=== PATIENT | female | born 1990 | race Caucasian/White ===

== ENCOUNTER 2019-05-11 08:16 | Emergency (ER) | payer SELFPAY ==
[2019-05-11 08:22] VITALS: BP 116/97; PULSE 84; RESP 16; TEMP 36.6; O2SAT 98; BMI 42.5
[2019-05-11 08:27] VITALS: BP 181/73; PULSE 81; RESP 17; O2SAT 98
--- NOTE | 2019-05-11 08:28 | ED_ITS ---
HPI - Dental/Oral General: Chief complaint: Dental/Oral Stated complaint: DENTAL PAIN Time Seen by Provider: 05/11/19 08:21 History of Present Illness: HPI Narrative: Patient is a 29-year-old female who comes into the ED with dental pain. About 2 weeks ago patient started getting dental pain and swelling around the tooth in her lower right mandible that has a cavity. She went to urgent care and was put on amoxicillin to treat the infection. Patient took full course of antibiotic and took her last dose of amoxicillin about 3 to 4 days ago. Patient said that her pain and swelling had gone down on the amoxicillin but came back about 2 days after finishing up amoxicillin. Patient says the pain and swelling is worse than it was before. She is currently contacting dental offices to set up an appointment. Associated symptoms: Denies fever(s) or painful swallowing Review of Systems Const: Denies: fever, chills or fatigue Eyes: Denies: change in vision or eye discomfort ENMT: Reports: dental pain; Denies: throat pain, painful swallowing, nasal discharge or nasal congestion Card: Denies: chest pain, palpitations, edema, swelling of feet/ankles, shortness of breath on exertion or shortness of breath when lying down Resp: Denies: shortness of breath, productive cough or non-productive cough GI: Denies: abdominal pain, nausea, vomiting, diarrhea, constipation or blood in stool : Denies: flank pain, painful urination or blood in urine Musc: Denies: neck pain, back pain or extremity swelling Skin/Breast: Denies: rash or new lesion Neuro: Denies: headache, numbness in extremities or weakness in extremities [facility] ED PFSH: Social History Smoking and tobacco status: current every day smoker Female Reproductive History: Date of last menstrual period: 05/03/19 Physical Exam Narrative: EXAM NARRATIVE: Patient is a 29-year-old female who appears in some pain. She is in no acute respiratory distress. She has some visible swelling on the right side of her face. Const: COMMON NORMALS: oriented x3 HENMT: COMMON NORMALS: normocephalic HEAD & SCALP: normocephalic FACE & SINUS: facial tenderness on the right (mandible where the dental pain is) mandible MOUTH: oral and palatal mucosa normal TEETH & GINGIVA: Yes caries (Tooth #32 has a cavity) and Yes fair dentition THROAT: posterior oropharynx normal and uvula midline Neck/C-Spine: COMMON NORMALS: supple GENERAL: Yes normal visual inspection Resp: COMMON NORMALS: normal respiratory effort, no retractions, no use of accessory muscles and clear to auscultation bilaterally AUSCULTATION: clear to auscultation bilaterally Cardio: COMMON NORMALS: regular rate, regular rhythm, S1 normal heart sound, S2 normal heart sound, no gallops, no clicks, no murmurs and peripheral pulses 2+ throughout RATE: regular rate RHYTHM: regular rhythm HEART SOUNDS: S1 normal and S2 normal PERIPHERAL PULSES: pulses 2+ throughout GI: COMMON NORMALS: normal to inspection, nondistended, normoactive bowel sounds, soft to palpation, non-tender and no masses PALPATION: Yes soft : COMMON NORMALS: Yes no CVA tenderness BLADDER/KIDNEY EXAM: Yes no CVA tenderness Back/Pelvis: COMMON NORMALS: no CVA tenderness Extremity: COMMON NORMALS: normal to inspection Neuro: COMMON NORMALS: oriented x3 and moves all extremities Skin: COMMON NORMALS: no rashes or lesions noted GENERAL SKIN EXAM: no rashes or lesions noted and dry skin Course Vital Signs: Vital signs: Vital Signs Temperature 97.8 F 05/11/19 08:22 Pulse Rate 81 05/11/19 08:27 Respiratory Rate 17 05/11/19 08:27 Blood Pressure 181/73 05/11/19 08:27 Pulse Oximetry 98 05/11/19 08:27 Discharge Plan Discharge Patient Disposition: Home, Self-Care Clinical Impression: Dental caries, Toothache Condition: Stable Prescriptions: New clindamycin HCl 150 mg capsule 300 mg PO QID 7 Days Qty: 56 RF: 0 No Action citalopram [Celexa] 40 mg tablet 40 mg PO DAILY RF: 0 bupropion HCl 150 mg tablet extended release 24 hr 150 mg PO QAM RF: 0 Discharge Orders: Discharge Order (Routine); Ordered 05/11/19 Ordered By: Phillip Aguayo Discharge Diet: Regular Discharge Activity: Resume usual activity Patient Instructions: Dental Caries (Cavities), Toothache (ED) Activity Restrictions/Additional Instructions: Follow-up with a dentist to address dental pain and cavity. Take full course of antibiotics as prescribed. You can take ibuprofen or Aleve as needed for pain. Coding Level of Care Code ED Head Librarian for Chg Fwd Exam Comprehensive
[2019-05-11] MEDS: HYDROcodone-acetaminophen 7.5-325 mg Tablet 1 TAB PO (08:48)
--- NOTE | 2019-05-11 08:48 | PC.NURSE ---
Pain med sent home with pt d/t patient driving home. Pt will take the med home.
[2019-05-11 08:56] VITALS: BP 134/66; PULSE 71; RESP 16; O2SAT 98
== END 2019-05-11 08:57 | disposition home or self-care (01) ==
LOC: ER 09:00
PROVIDERS: Emergency Provider Physician Assistant
DX: K02.9 Dental caries, unspecified (principal); F17.200 Nicotine dependence, unspecified, uncomplicated
CPT/HCPCS: 12345; 99282

== ENCOUNTER → 2020-03-23 13:32 | Outpatient (BNVA) | payer OTHER, SELFPAY | PROVIDERS: Visit Provider Nurse Practitioner | DX: M54.9 Dorsalgia, unspecified (principal) | CPT/HCPCS: 71046 ==

== ENCOUNTER 2020-03-23 14:36 | Outpatient (CLI) | payer OTHER, SELFPAY ==
--- NOTE | 2020-03-23 14:43 | XR_ITS ---
WS: [id number] Exam: XR soft tissue neck [id number] Date/Time of Exam: 03/23/2020 2:45 PM Reason For Exam: Food stuck The airway is patent. There is mild prominence of the prevertebral soft tissues from C5 to C7 however this may be due to the positioning. Bony structures of the C-spine are unremarkable as visualized. N o radiopaque foreign bodies are seen. XR/XR soft tissue neck [id number] IMPRESSION: 1. Mild widening of the prevertebral soft tissues from C5 to C7. This may be du e to positioning. No radiopaque foreign bodies are seen. 2. The airway is unremarkable in appearance. 3. Retained food or foreign body in the esophagus would not be completely ruled out based on this study. If the patient does not respond to conservative manag ement, endoscopy may be necessary for further workup.
== END 2020-03-23 14:37 | disposition home or self-care (01) ==
PROVIDERS: Visit Provider Nurse Practitioner
DX: M79.5 Residual foreign body in soft tissue (principal)
CPT/HCPCS: 70360

== ENCOUNTER 2021-04-18 15:26 | Emergency (ER) | payer OTHER, SELFPAY ==
[2021-04-18 15:40] VITALS: BP 126/97; PULSE 82; RESP 18; TEMP 36.4; O2SAT 95; BMI 53.1
--- NOTE | 2021-04-18 15:45 | XRR_ITS ---
PROCEDURE INFORMATION: Exam: XR Chest Exam date and time: 04/18/2021 3:45 PM Age: 31 years old Clinical indication: Shortness of breath; Additional info: Dyspnea TECHNIQUE: Imaging protocol: XR of the chest. Views: 1 view. COMPARISON: CR XR chest 2V* [id number] 03/23/2020 1:44 PM FINDINGS: Lungs: Patchy bilateral mid to lower lung field airspace infiltrates. Pleural spaces: Unremarkable. No pleural effusion. No pneumothorax. Heart/Mediastinum: Unremarkable. No cardiomegaly. Bones/joints: Sternotomy wires. XR/XR chest 1V portable [id number] IMPRESSION: Patchy bilateral mid to lower lung field airspace infiltrates.
[2021-04-18 16:21] VITALS: BP 122/97; PULSE 96; RESP 18; O2SAT 93
[2021-04-18] MEDS: predniSONE 20 mg Tablet 60 MG PO (16:26)
--- NOTE | 2021-04-18 16:47 | ED_ITS ---
HPI - General Adult General: Chief complaint: Shortness of Breath/Dyspnea Stated complaint: SOB, chest congestion Time Seen by Provider: 04/18/21 15:48 History of Present Illness: 31-year-old female with a history of prior septic emboli, endocarditis status post valvular repair presenting to the emergency room for evaluation of acute onset of dyspnea x3 days with non-productive cough. Patient denies any fever or chills but reports that her children are sick at home with similar symptoms. Patient reports 2 of her children has been coughing has had runny nose shortly after she started having symptoms. Patient denies any nausea/vomiting, diarrhea, melena hematochezia or complaints. No other abdominal complaint. Patient has not had any recent IV drug use. She has a portable pulse ox at home and reports that his oxygen sat was 89 to 90% on her pulse ox. Onset:3 days ago Duration:3 days Location:home Severity:mild/moderate Associated symptoms: Reports dyspnea; Deny chest pain, nausea, rash, palpitations or vomiting Review of Systems Const: Denies: fever(s) or chills Eyes: Denies: change in vision ENMT: Denies: mouth pain Card: Denies: chest pain or palpitations Resp: Reports: dyspnea and non-productive cough GI: Denies: abdominal pain, nausea, vomiting or diarrhea : Denies: dysuria Musc: Denies: extremity pain Skin/Breast: Denies: rash or new lesions Neuro: Denies: weakness in extremities Psych: Reports: other (Normal mood) Ike/Lymph: Denies: easy bruising [facility] ED PFSH: Medical History (Updated 04/18/21 @ 19:59 by Migue Mendoza MD) Endocarditis Septic embolism Social History (Updated 04/18/21 @ 16:49 by Artur Stokes MD) Smoking and tobacco status: current every day smoker Alcohol intake: never Substance/Drug Use: never Female Reproductive History: Date of last menstrual period: 05/03/19 Physical Exam Const: COMMON NORMALS: alert HENMT: COMMON NORMALS: atraumatic HEAD & SCALP: atraumatic MOUTH: moist mucous membranes not abnormal Eye: COMMON NORMALS: EOMs intact bilaterally and conjunctivae normal CONJUNCTIVA: Yes conjunctivae normal Neck/C-Spine: COMMON NORMALS: full ROM and supple Resp: COMMON NORMALS: normal respiratory effort OTHER: +Mild expiratory wheezes b/l Cardio: COMMON NORMALS: regular rate RATE: regular rate GI: COMMON NORMALS: Soft to palpation and non-tender PALPATION: Yes Soft to palpation Extremity: COMMON NORMALS: full ROM Neuro: SENSORIUM/ORIENTATION: Yes alert MOTOR EXAM: No Abnormal motor strength present and Other motor observations present (no focal motor deficits) Psych: COMMON NORMALS: speech normal SPEECH: Yes normal speech MOOD & AFFECT: Yes euthymic mood Course Vital Signs: Vital signs: Vital Signs Temperature 97.6 F 04/18/21 15:40 Pulse Rate 89 04/18/21 20:13 Respiratory Rate 18 04/18/21 20:13 Blood Pressure 130/88 04/18/21 20:13 Pulse Oximetry 95 04/18/21 20:13 [facility] - General Adult Medical Decision Making 31-year-old female with history of prior septic emboli and endocarditis presenting to the emergency room with acute onset of dyspnea x3 days. Sick contacts at home. Patient has not been tested for Covid. On exam, patient is noted to have bilateral mild expiratory wheezes. No signs of increased work of breathing. Patient continues to satting greater than 94% while observed in the emergency room. She is negative for any acute finding. Patient was observed in the emergency room continue her satting at 94-95% on room air. Patient received DuoNeb with significant improvement in symptoms. XR is consistent with interstitial disease. Doubt ACS/PE or other emergent causes of symptoms today. Patient does not appear to have anginal equivalent symptoms. As patient's past VTE is drug-induced, patient has no findings of leg swelling, pleuritic chest pain, recent travel or immobolization. In addition, similar dyspnea and cough present in family --- this is unlikely to be PE. No suspicion for aortic dissection given no widened mediastinum, 2+ upper extremity pulses, or tearing pain. No suspicion for PE given no pleuritic chest pain, recent immobilization or surgery hemoptysis, or other VTE risk factors. EKG is non-ischemic. I have given patient follow up with our upper caser to be seen by our outpatient PCP for wheezing and respiratory symptoms. Patient aware of a call from our upper caser to schedule for appointment(s) and verbalizes understanding of the importance of following up. I have given patient strict return precaution for any drops in the pulse ox to less than 88% while on oxygen. Rx albuterol inhaler PRN wheezing, tylenol PRN pain Lab Data Radiology Impressions Chest X-Ray 04/18/21 15:45 IMPRESSION: Patchy bilateral mid to lower lung field airspace infiltrates. Laboratory Results Coronavirus 229E (PCR) Detected (NOT DETECT) A 04/18/21 16:14 SARS-CoV-2 (PCR) Not detected (NOT DETECT) 04/18/21 16:14 Imaging Data Other Imaging: Radiologist's impression: [address] [address] XRay Report Signed Patient: Allyn Killian Unit #: [id number] : 1990 Age/Sex: 31 / F ADM Date: 04/18/21 Loc: ER Room/Bed: Attending Dr: Ordering Provider/Ordering MD: Artur Stokes MD Date of Service: 04/18/21 Procedure(s): XR chest 1V portable [id number] Accession Number(s): [id number] Report Number: [id number] PROCEDURE INFORMATION: Exam: XR Chest Exam date and time: 04/18/2021 3:45 PM Age: 31 years old Clinical indication: Shortness of breath; Additional info: Dyspnea TECHNIQUE: Imaging protocol: XR of the chest. Views: 1 view. COMPARISON: CR XR chest 2V* [id number] 03/23/2020 1:44 PM FINDINGS: Lungs: Patchy bilateral mid to lower lung field airspace infiltrates. Pleural spaces: Unremarkable. No pleural effusion. No pneumothorax. Heart/Mediastinum: Unremarkable. No cardiomegaly. Bones/joints: Sternotomy wires. XR/XR chest 1V portable [id number] IMPRESSION: Patchy bilateral mid to lower lung field airspace infiltrates. ? Dictated By: Giuseppe Cho MD Signed By: Giuseppe Cho MD Signed Date/Time: 04/18/21 1705 DD/ 1545 Discharge Plan Discharge Patient Disposition: Home Clinical Impression: Cough, Dyspnea, Acute exacerbation of chronic obstructive airways disease, Coronavirus infection Prescriptions: New acetaminophen 500 mg tablet 500 mg PO Q6H PRN (Reason: pain) 5 Days Qty: 20 0RF albuterol sulfate 90 mcg/actuation HFA aerosol inhaler 2 inh inhalation Q4H PRN (Reason: shortness of breath or wheezing) 5 Days Qty: 6.7 0RF doxycycline hyclate 100 mg tablet 100 mg PO Q12H 10 Days Qty: 20 0RF prednisone 50 mg tablet 50 mg PO DAILY 5 Days Qty: 5 0RF No Action bupropion HCl 150 mg tablet extended release 24 hr 150 mg PO QAM 0RF pantoprazole [Protonix] 20 mg tablet,delayed release (DR/EC) 20 mg PO BID Qty: 20 0RF Discharge Orders: Discharge ED (Routine); Ordered 04/18/21 Ordered By: Migue Mendoza Discharge Diet: Advance as tolerated Discharge Activity: Increase activity as tolerated Activity Restrictions/Additional Instructions: Come back to the emergency room if your symptoms worsen, have any shortness of breath, fever/chills, dehydration, inability tolerate food or drinks, any difficulty breathing, or any new or concerning complaints. Please return the emergency room if your pulse ox reads less than 88%. You tested positive for non covid 19 coronavirus. Stand Alone Forms: Work/School Release Coding Level of Care Code ED Depalletizer Operator for Susana Fwd Exam Comprehensive
[2021-04-18 17:00] VITALS: PULSE 82; RESP 18; O2SAT 94
[2021-04-18] MEDS: ipratropium-albuterol 3 mL Neb INHALATION ×3 (17:09)
[2021-04-18 17:12] VITALS: PULSE 81
[2021-04-18 17:28] VITALS: O2SAT 92; O2SAT 95
[2021-04-18 18:11] LABS: Adenovirus Not Detected (NOT DETECT); Chlamydia Pneumoniae Not Detected (NOT DETECT); Coronavirus 229E,HKU1,NL63,OC4 Detected (NOT DETECT); Human Metapneumovirus Not Detected (NOT DETECT); Human Rhinovirus/Enterovirus Not Detected (NOT DETECT); Influenza A Not Detected (NOT DETECT); Influenza A H1 Not Detected (NOT DETECT); Influenza A H1-2009 Not Detected (NOT DETECT); Influenza A H3 Not Detected (NOT DETECT); Influenza B Not Detected (NOT DETECT); Mycoplasma Pneumoniae Not Detected (NOT DETECT); Parainfluenza Virus Type 1 Not Detected (NOT DETECT); Parainfluenza Virus Type 2 Not Detected (NOT DETECT); Parainfluenza Virus Type 3 Not Detected (NOT DETECT); Parainfluenza Virus Type 4 Not Detected (NOT DETECT); Respiratory Syncytial Virus A Not Detected (NOT DETECT); Respiratory Syncytial Virus B Not Detected (NOT DETECT); SARS-COV-2 Not Detected (NOT DETECT)
[2021-04-18 20:13] VITALS: BP 130/88; PULSE 89; RESP 18; O2SAT 95
== END 2021-04-18 20:05 | disposition home or self-care (01) ==
PROVIDERS: Emergency Provider Emergency Medicine
DX: J44.1 Chronic obstructive pulmonary disease with (acute) exacerbation (principal); B34.2 Coronavirus infection, unspecified; F17.210 Nicotine dependence, cigarettes, uncomplicated
CPT/HCPCS: 71045; 87635; 94640; 99283; J7512

== ENCOUNTER → 2022-01-21 18:47 | Outpatient (BNVA) | payer OTHER, MEDICAID, SELFPAY | PROVIDERS: Visit Provider Registered Nurse Neonatal Intensive Care | DX: R50.9 Fever, unspecified (principal) | CPT/HCPCS: 87400 ==

== ENCOUNTER 2022-02-06 19:33 | Emergency (ER) | payer MEDICAID, SELFPAY ==
[2022-02-06 19:45] VITALS: BP 159/109; PULSE 85; RESP 18; TEMP 36.7; O2SAT 95; BMI 62.6
--- NOTE | 2022-02-06 19:51 | XRR_ITS ---
PROCEDURE INFORMATION: Exam: XR Chest Exam date and time: 02/06/2022 8:01 PM Age: 31 years old Clinical indication: Shortness of breath; Prior surgery; Surgery date: 6+ months; Additional info: SOB TECHNIQUE: Imaging protocol: Radiologic exam of the chest. Views: 1 view. COMPARISON: CR XR chest 1V portable [id number] 04/18/2021 4:30 PM FINDINGS: Lungs: Mild pulmonary vascular congestion. Pleural spaces: Unremarkable. No pleural effusion. No pneumothorax. Heart/Mediastinum: Mild cardiomegaly Bones/joints: Sternotomy wires. XR/XR chest 1V portable [id number] IMPRESSION: Mild cardiomegaly and mild pulmonary vascular congestion
--- NOTE | 2022-02-06 20:01 | ED_ITS ---
HPI - SOB/Dyspnea General: Chief Complaint: Shortness of Breath/Dyspnea Stated Complaint: SOB, Leg swelling Time Seen by Provider: 02/06/22 19:51 Source: patient Mode of arrival: ambulatory Limitations: no limitations History of Present Illness: HPI Narrative: 31-year-old female who had a history of IV drug use she has been clean for 5 years she did have endocarditis 6 years ago from the IV drug use and had open heart surgery states that over the last month she been having some increasing swelling shortness of breath and wheezing. States her legs do swell and they felt tight bilaterally patient is in no distress here she denies any chest pain denies any cough or fever. Associated symptoms: Deny abdominal pain, chest pain, fever(s), nausea or vomiting Review of Systems Const: Denies: fever(s), chills, body aches or change in appetite Eyes: Denies: blurry vision or eye discomfort ENMT: Denies: throat pain or dental pain Card: Denies: chest pain Resp: Reports: dyspnea GI: Denies: abdominal pain, nausea, vomiting or diarrhea : Denies: dysuria Musc: Reports: extremity swelling Skin/Breast: Denies: rash Neuro: Denies: headache(s) Psych: Denies: depression Ike/Lymph: Denies: easy bruising All/Imm: Denies: urticaria PFSH ED PFSH: Medical History Endocarditis Septic embolism Social History Smoking and tobacco status: current every day smoker Alcohol intake: never Female Reproductive History: Date of last menstrual period: 05/03/19 Physical Exam Const: COMMON NORMALS: no acute distress, patient oriented x3 and healthy a ppearing HENMT: COMMON NORMALS: normocephalic and atraumatic HEAD & SCALP: normocephalic and atraumatic Eye: COMMON NORMALS: Equal, round and reactive pupils present and EOMs intact bilaterally PUPIL: Yes Equal, round and reactive pupils present Neck/C-Spine: COMMON NORMALS: full ROM and supple Chest: COMMONS NORMALS: normal inspection of the chest and normal palpation of entire chest wall Resp: COMMON NORMALS: normal respiratory effort, No retractions, No use of accessory muscles and clear to auscultation bilaterally AUSCULTATION: clear to auscultation bilaterally Cardio: COMMON NORMALS: regular rate, regular rhythm and No murmurs present (Cardio) RATE: regular rate RHYTHM: regular rhythm GI: COMMON NORMALS: Normal to inspection, nondistended, normoactive bowel sounds present, Soft to palpation, non-tender and no masses PALPATION: Yes Soft to palpation Extremity: COMMON NORMALS: full ROM NARRATIVE EXTREMITY EXAM: 2+edema Neuro: COMMON NORMALS: patient oriented x3, moves all extremities and no focal motor deficits Psych: COMMON NORMALS: mental status grossly normal, Normal thought process present and cooperative THOUGHT PROCESS: Normal thought process present Skin: COMMON NORMALS: no rashes or lesions noted and no wounds GENERAL SKIN EXAM: no rashes or lesions noted Course Vital Signs: Vital signs: Vital Signs Temperature 98.0 F 02/06/22 19:45 Pulse Rate 85 02/06/22 19:45 Respiratory Rate 18 02/06/22 19:45 Blood Pressure 159/109 02/06/22 19:45 Pulse Oximetry 95 02/06/22 19:45 Oxygen Delivery Me thod 02/06/22 19:45 MDM - SOB/Dyspnea Medical Decision Making Patient presents here with some lower extreme edema she is in no respiratory dis tress here BNP is mildly elevated we will start her on Lasix and get her cardiology follow-up she has no signs of pulmonary embolism she is to follow-up return if worsening she understands agrees to plan. Lab Data 02/06/22 20:15 02/06/22 20:15 Labs/Radiology: Radiology Impressions Chest X-Ray 02/06/22 19:51 IMPRESSION: Mild cardiomegaly and mild pulmonary vascular congestion Laboratory Results WBC 5.7 10^3/uL (4.0-10.0) 02/06/22 20:15 RBC 4.33 10^6/uL (4.1-5.3) 02/06/22 20:15 Hgb 12.8 g/dL (11.5-15.3) 02/06/22 20:15 Hct 41.2 % (37.0-47.0) 02/06/22 20:15 MCV 95.2 fl (81-99) 02/06/22 20:15 MCH 29.6 pg (28.0-34.0) 02/06/22 20:15 MCHC 31.1 g/dL (30.0-36.0) 02/06/22 20:15 RDW 13.1 % (12.1-15.1) 02/06/22 20:15 Plt Count 165 10^3/cmm (130-400) 02/06/22 20:15 MPV 9.1 fL (7.4-10.4) 02/06/22 20:15 Neut % (Auto) 68.0 % 02/06/22 20:15 Lymph % (Auto) 24.0 % 02/06/22 20:15 [place] % (Auto) 4.9 % 02/06/22 20:15 Eos % (Auto) 2.3 % 02/06/22 20:15 Baso % (Auto) 0.4 % 02/06/22 20:15 Neut # (Auto) 3.88 10^3/uL (1.8-7.7) 02/06/22 20:15 Lymph # (Auto) 1.4 10^3/uL (0.8-4.8) 02/06/22 20:15 [place]vert # (Auto) 0.3 10^3/uL (0.2-0.9) 02/06/22 20:15 Eos # (Auto) 0.1 10^3/uL (0.0-0.8) 02/06/22 20:15 Baso # (Auto) 0.0 10^3/uL (0.0-0.1) 02/06/22 20:15 Nucleated RBC % (auto) 0 % 02/06/22 20:15 Nucleated RBCs # 0.0 /100WBC 02/06/22 20:15 Sodium 140 mmol/L (136-145) 02/06/22 20:15 Potassium 4.4 mmol/L (3.5-5.1) 02/06/22 20:15 Chloride 102 mmol/L (98-107) 02/06/22 20:15 Carbon Dioxide 30 mmol/L (22-29) H 02/06/22 20:15 Anion Gap 12.4 (5-19) 02/06/22 20:15 BUN 12 mg/dL (6-20) 02/06/22 20:15 Creatinine 0.8 mg/dL (0.5-0.9) 02/06/22 20:15 GFR Calculation 84.8 mL/min (90-130) L 02/06/22 20:15 Glucose 89 mg/dL (65-115) 02/06/22 20:15 Calculated Osmolality 289 mOsm/kg (285-295) 02/06/22 20:15 Calcium 9.1 mg/dL (8.5-10.5) 02/06/22 20:15 Total Bilirubin 0.2 mg/dL (0.15-1.2) 02/06/22 20:15 AST 72 U/L (0-32) H 02/06/22 20:15 ALT 81 U/L (0-33) H 02/06/22 20:15 Alkaline Phosphatase 84 U/L (35-105) 02/06/22 20:15 Troponin T Baseline 10 ng/L (0-10) 02/06/22 20:15 NT-Pro-B Natriuret Pep 606 pg/mL (0-125) H 02/06/22 20:15 Total Protein 7.3 g/dL (6.6-8.7) 02/06/22 20:15 Albumin 3.7 g/dL (3.5-5.2) 02/06/22 20:15 Globulin 3.6 g/dL (1.3-4.6) 02/06/22 20:15 Discharge Plan Discharge Patient Disposition: Home Clinical Impression: Bilateral lower extremity edema Condition: Stable Prescriptions: New Lasix 40 mg tablet 40 mg PO BID Qty: 60 0RF Discontinued furosemide [Lasix] 40 mg tablet 20 mg PO BID Qty: 4 0RF Discharge Orders: Discharge ED (Routine); Ordered 02/06/22 Ordered By: Anabel Carey Referrals: Demond James M.D [Physician] - 1-3 days Discharge Diet: Advance as tolerated Discharge Activity: Resume usual activity Patient Instructions: Edema (ED) Stand Alone Forms: Work/School Release Coding Level of Care Code ED Director [employer] for Susana Fwd Exam Comprehensive
--- NOTE | 2022-02-06 20:02 | ECG_ITS ---
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 Measurements Intervals [place] Rate: 86 P: 81 NV: 146 QRS: 80 QRSD: 77 T: 63 QT: 364 QTc: 436 Interpretive Statements SINUS RHYTHM POSSIBLE LEFT ATRIAL ENLARGEMENT [-0.1mV P-WAVE IN V1/V2] LOW QRS VOLTAGE IN PRECORDIAL LEADS [QRS DEFLECTION < 1.0 mV IN CHEST LEADS] ANTEROSEPTAL MYOCARDIAL INFARCTION , OF INDETERMINATE AGE [40+ ms Q WAVE IN V1-V4] Compared to ECG 11/21/2017 09:52:48 Low QRS voltage now present Myocardial infarct finding now present Short NV interval no longer present Electronically Signed On 02-07-2022 13:47:26 EMBROIDERY SPECIALIST by Demond James M.D. [id number]
[2022-02-06] MEDS: FUROsemide 10 mg/mL SDV 4mL 40 MG IVP (20:11)
[2022-02-06 20:25] LABS: Basophils % 0.4 %; Eosinophils # 0.1 10^3/uL (0.0-0.8); Eosinophils % 2.3 %; Hematocrit 41.2 % (37.0-47.0); Hemoglobin 12.8 g/dL (11.5-15.3); Lymphocytes # 1.4 10^3/uL (0.8-4.8); Mean Corpuscular HGB Conc 31.1 g/dL (30.0-36.0); Mean Corpuscular Hemoglobin 29.6 pg (28.0-34.0); Mean Corpuscular Volume 95.2 fl (81-99); Mean Platelet Volume 9.1 fL (7.4-10.4); Monocytes # 0.3 10^3/uL (0.2-0.9); Monocytes % 4.9 %; Neutrophils # 3.88 10^3/uL (1.8-7.7); Nucleated Red Blood Cells % 0 %; Platelet Count 165 10^3/cmm (130-400); Red Blood Count 4.33 10^6/uL (4.1-5.3); Red Cell Distribution Width 13.1 % (12.1-15.1); White Blood Count 5.7 10^3/uL (4.0-10.0)
[2022-02-06 20:51] LABS: Troponin(5th) Baseline 10 ng/L (0-10)
[2022-02-06 20:59] LABS: Alanine Aminotransferase 81 U/L (0-33); Albumin Level 3.7 g/dL (3.5-5.2); Alkaline Phosphatase 84 U/L (35-105); Anion Gap 12.4 (5-19); Aspartate Amino Transferase 72 U/L (0-32); Blood Urea Nitrogen 12 mg/dL (6-20); Calcium 9.1 mg/dL (8.5-10.5); Carbon Dioxide 30 mmol/L (22-29); Chloride 102 mmol/L (98-107); Globulin 3.6 g/dL (1.3-4.6); Glomerular Filtration Rate 84.8 mL/min (90-130); Glucose 89 mg/dL (65-115); NT Pro B Type Natriuretic Pept 606 pg/mL (0-125); Osmolality Calculated 289 mOsm/kg (285-295); Potassium 4.4 mmol/L (3.5-5.1); Sodium 140 mmol/L (136-145); Total Bilirubin 0.2 mg/dL (0.15-1.2); Total Protein 7.3 g/dL (6.6-8.7)
[2022-02-06 21:18] VITALS: BP 149/103; PULSE 88; RESP 18; O2SAT 96
--- NOTE | 2022-02-07 08:09 | DCPLANNER ---
Addendum entered by Rani Scott 02/11/22 15:22: Patient had a follow up appointment scheduled with heart care - patient did attend appointment. Original Note: manager banking had message to schedule a follow up appointment for patient with cardiology. manager banking sent patients information to the front office staff at heart care. Patients information will be printed and reviewed. Clinic will call patient with appointment information.
== END 2022-02-06 21:12 | disposition home or self-care (01) ==
PROVIDERS: Emergency Provider Emergency Medicine
DX: R60.0 Localized edema (principal); F17.210 Nicotine dependence, cigarettes, uncomplicated
CPT/HCPCS: 71045; 80053; 83880; 84484; 85025; 93005; 96374; 99285; J1940

== ENCOUNTER 2022-02-27 13:32 | Outpatient (CLI) | payer MEDICAID, SELFPAY ==
--- NOTE | 2022-02-27 13:45 | USCV_ITS ---
Allyn Killian Age: 31 Gender: F : 1990 Exam Date: 02/27/2022 14:39 Ordering Phys: Demond James M.D ([email or web address]) Technologist: PJ Exam Location: [facility] [place] Indication: SHORTNESS OF BREATH BP: 130 / 90 HR: 89 Rhythm: Sinus Technical Quality: Poor because of body habitus MEASUREMENTS (Male / Female) Normal Values 2D ECHO LV Ejection Fraction MOD 2C 62.2 % LV Ejection Fraction 2C AL 60.7 % LA Width 2.8 cm LA Height 4.5 cm RA Width 2.5 cm RA Height 4.3 cm DOPPLER AV Peak Velocity 152.0 cm/s LVOT Peak Velocity 102.0 cm/s MV Peak Velocity 130.0 cm/s MV Area PHT 5.4 cm squared Mitral E to A Ratio 1.6 MV E' Velocity 63.0 cm/s Mitral E to MV E' Ratio 12.0 Mitral E to LV E' Lateral Ratio 10.3 Mitral E to LV E' Septal Ratio 14.4 TV Peak E Velocity 46.0 cm/s Right Atrial Pressure 8.0 mmHg FINDINGS Left Ventricle Left ventricle is normal in size. LV systolic function is normal with 55 to 60%. No regional motion abnormalities are seen. Right Ventricle Normal in size and function Right Atrium Normal size Left Atrium Normal size Mitral Valve Grossly normal. Trace mitral regurgitation. Aortic Valve Not well visualized. No significant stenosis or regurgitation. Tricuspid Valve Not well visualized Pulmonic Valve Not well visualized Pericardium Not well visualized Aorta Not well visualized IVC Not visualized CONCLUSIONS Technically limited echocardiogram because of poor ultrasonic windows LV systolic function is normal with EF of 55-60% Valvular structures are not well visualized. Trace mitral regurgitation. Comparison with prior echocardiogram not possible because of poor visualization Demond James MD (Electronically Signed) Final Date: 06 March 2022 12:19 S
== END 2022-02-27 13:33 | disposition home or self-care (01) ==
PROVIDERS: Visit Provider Internal Medicine
DX: R06.02 Shortness of breath (principal); I34.0 Nonrheumatic mitral (valve) insufficiency
CPT/HCPCS: 93306

== ENCOUNTER 2022-06-10 20:27 | Emergency (ER) | payer MEDICAID, SELFPAY ==
[2022-06-10 21:12] VITALS: BP 124/94; PULSE 94; RESP 20; TEMP 36.3; O2SAT 95; BMI 58.4
--- NOTE | 2022-06-10 21:21 | ED_ITS ---
HPI - General Adult General: Chief complaint: General Medical Stated complaint: bilateral tightness and swelling to legs Time Seen by Provider: 06/10/22 21:19 History of Present Illness: 32-year-old female comes in today for complaints of increased swelling to lower extremities. Patient's been without her Lasix 40 mg for the last 2 weeks. 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 Patient appears nontoxic. Patient reports no increased chest pain or shortness of breath. 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 Patient had a valve replacement. Associated symptoms: Deny chest pain, dyspnea, rash or vomiting Review of Systems Const: Denies: fever(s) Card: Denies: chest pain Resp: Denies: dyspnea GI: Denies: vomiting : Denies: difficulty voiding Musc: Denies: extremity pain Skin/Breast: Denies: rash PFSH ED PFSH: Medical History (Updated 06/10/22 @ 21:35 by JB Hector) Endocarditis Septic embolism Surgical History (Updated 02/11/22 @ 13:14 by Demond James M.D) History of open heart surgery Social History Smoking and tobacco status: current every day smoker Alcohol intake: never Physical Exam Const: COMMON NORMALS: alert HENMT: COMMON NORMALS: normocephalic HEAD & SCALP: normocephalic MOUTH: Normal oral and palatal mucosa present Neck/C-Spine: COMMON NORMALS: full ROM Resp: COMMON NORMALS: normal respiratory effort and clear to auscultation bilaterally AUSCULTATION: clear to auscultation bilaterally Cardio: COMMON NORMALS: regular rate, regular rhythm and No murmurs present (Cardio) (Prosthetic valve noise) RATE: regular rate RHYTHM: regular rhythm Extremity: NARRATIVE EXTREMITY EXAM: Bilateral lower extremity edema including lower leg and feet. Neuro: SENSORIUM/ORIENTATION: Yes alert Skin: COMMON NORMALS: turgor normal GENERAL SKIN EXAM: turgor normal Course Vital Signs: Vital signs: Vital Signs Temperature 97.4 F L 06/10/22 21:12 Pulse Rate 94 06/10/22 21:12 Respiratory Rate 20 H 06/10/22 21:12 Blood Pressure 124/94 06/10/22 21:12 Pulse Oximetry 95 06/10/22 21:12 Oxygen Delivery Me thod Room Air 06/10/22 21:12 MDM - General Adult Medical Decision Making 32-year-old female comes in today for complaints of increased swelling to the lower extremities. 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 Patient had valve replacement. Patient denies any further IV drug use for the last 8 years. Patient denies any fever, shortness of breath, or chest pain. On exam we note pedal edema including the lower leg and feet about +1. Vital signs are normal. Differential diagnosis includes CHF, peripheral edema, lymphedema. Reviewed exam with patient with recommendations for treatment and follow-up. Patient was given 10 days worth of her furosemide 40 mg with recommendations for follow-up. Patient reports that she does have some potassium at home. Discharge Plan Discharge Patient Disposition: Home Clinical Impression: Edema, peripheral, Hx of valvular heart disease Condition: Stable Prescriptions: New furosemide 40 mg tablet 40 mg PO BID PRN (Reason: edema) Qty: 20 0RF No Action Lasix 40 mg tablet 40 mg PO DAILY buprenorphine-naloxone [Suboxone] 8-2 mg film 1 film buccal DAILY Discharge Orders: Discharge ED (Routine); Ordered 06/10/22 Ordered By: William Simpson Discharge Diet: Usual diet Discharge Activity: Increase activity as tolerated Patient Instructions: Edema (ED) Activity Restrictions/Additional Instructions: Continue with medications as directed. Follow-up with primary care or specialist for further refills. Return to ER for worsening symptoms such as severe shortness of breath, severe chest pain, or new concerns. Coding Level of Care Code ED Food Production Associate for Susana Stringer
--- NOTE | 2022-06-13 13:18 | DCPLANNER ---
rd project manager called patient due to no primary care physician - no answer at this time.
== END 2022-06-10 21:50 | disposition home or self-care (01) ==
PROVIDERS: Emergency Provider Nurse Practitioner Family
DX: R60.0 Localized edema (principal); F17.210 Nicotine dependence, cigarettes, uncomplicated
CPT/HCPCS: 99283

== ENCOUNTER 2023-03-13 17:59 | Emergency (ER) | payer MEDICAID, SELFPAY ==
[2023-03-13 18:16] VITALS: BP 159/97; PULSE 92; RESP 20; TEMP 36.6; O2SAT 95
--- NOTE | 2023-03-13 18:57 | XRR_ITS ---
PROCEDURE INFORMATION: Exam: XR Chest Exam date and time: 03/13/2023 7:17 PM Age: 32 years old Clinical indication: Shortness of breath and other: Extremity swelling; Prior surgery; Surgery date: 6+ months; Surgery type: Valve repair. Patient HX: SOB with extremity swelling. Recently diagnosed with chf. History of endocarditis. TECHNIQUE: Imaging protocol: Radiologic exam of the chest. Views: 1 view. COMPARISON: CR XR chest 1V portable [id number] 02/06/2022 8:01 PM FINDINGS: Lungs: Bilateral low lung volumes. Pleural spaces: Unremarkable. No pleural effusion. No pneumothorax. Heart/Mediastinum: Median sternotomy wires/prior open heart surgery. Mild pulmonary vascular congestion. Bones/joints: Unremarkable. XR/XR chest 1V portable [id number] IMPRESSION: Stable mild cardiomegaly. Mildly increased pulmonary vascular congestion compared to 02/06/2022 radiograph.
--- NOTE | 2023-03-13 18:57 | ECG_ITS ---
[facility] Test Date: 2023-03-13 Pat Name: Allyn Killian Department: Room: Gender: Female Chemical Engraver: : 1990 Requested By: Anabel Carey Order Number: [id number] Silvia MD: Demond James M.D. Measurements Intervals [place] Rate: 88 P: 81 WA: 129 QRS: 106 QRSD: 85 T: 63 QT: 341 QTc: 414 Interpretive Statements SINUS RHYTHM RIGHT AXIS DEVIATION [QRS AXIS > 100] LOW QRS VOLTAGE IN PRECORDIAL LEADS [QRS DEFLECTION < 1.0 mV IN CHEST LEADS] Compared to ECG 02/06/2022 20:02:29 Right-axis deviation now present Myocardial infarct finding no longer present Electronically Signed On 03-14-2023 6:06:09 NECKTIES PAINTER by Demond James M.D. [id number]
--- NOTE | 2023-03-13 19:02 | ED_ITS ---
HPI - Extremity Problem 2 General: Chief complaint: Extremity Problem,Nontraumatic Stated complaint: left side feet and hand swelling Time Seen by Provider: 03/13/23 18:50 Source: patient Mode of arrival: ambulatory Limitations: no limitations History of Present Illness: 32-year-old female states that she has a history of congestive heart failure states that she is on Lasix 40 mg twice daily states she has had increased swelling over the last week she had some slight dyspnea as well she denies any chest pain patient states that she is try to get a PCP here but has not been able to get 1. She denies any worsening improving factors. Associated symptoms: Deny chest pain, fever(s) or rash Review of Systems 2 Const: Denies: fever(s), chills, body aches or change in appetite Eyes: Denies: blurry vision or eye discomfort ENMT: Denies: throat pain or dental pain Card: Denies: chest pain Resp: Denies: dyspnea GI: Denies: abdominal pain, nausea, vomiting or diarrhea : Denies: dysuria Musc: Reports: extremity swelling; Denies: neck pain or back pain Skin/Breast: Denies: rash Neuro: Denies: headache(s) PFSH ED 2 PFSH: Medical History Endocarditis Septic embolism Surgical History History of open heart surgery Social History Smoking and tobacco/nicotine status: current every day tobacco/nicotine user Alcohol intake: never Substance/Drug Use: never Physical Exam 2 Const: COMMON NORMALS: no acute distress, patient oriented x3 and healthy appearing HENMT: COMMON NORMALS: normocephalic and atraumatic HEAD & SCALP: n ormocephalic and atraumatic OTHER: Erythema to right TM Eye: COMMON NORMALS: Equal, round and reactive pupils present and EOMs intact bilaterally PUPIL: Yes Equal, round and reactive pupils present Neck/C-Spine: COMMON NORMALS: full ROM and supple Chest: COMMONS NORMALS: normal inspection of the chest Resp: COMMON NORMALS: normal respiratory effort Cardio: COMMON NORMALS: regular rate, regular rhythm and No murmurs present (Cardio) RATE: regular rate RHYTHM: regular rhythm GI: COMMON NORMALS: Normal to inspection, nondistended, normoactive bowel sounds present, Soft to palpation, non-tender and no masses PALPATION: Yes Soft to palpation Extremity: COMMON NORMALS: full ROM NARRATIVE EXTREMITY EXAM: 2+ edema to le Neuro: COMMON NORMALS: patient oriented x3, moves all extremities and no focal motor deficits Psych: COMMON NORMALS: mental status grossly normal, Normal thought process present and cooperative THOUGHT PROCESS: Normal thought process present Skin: COMMON NORMALS: no rashes or lesions noted and no wounds GENERAL SKIN EXAM: no rashes or lesions noted Course 2 Vital Signs: Vital signs: Vital Signs Temperature 97.9 F 03/13/23 18:16 Pulse Rate 96 03/13/23 20:49 Respiratory Rate 19 H 03/13/23 20:49 Blood Pressure 138/92 03/13/23 20:49 Pulse Oximetry 97 03/13/23 20:49 Oxygen Delivery Me thod Room Air 03/13/23 18:16 MDM - Extremity (Nontraumatic) Medical Decision Making Patient presents here with lower extremity edema she is on Lasix at home did give her IV Lasix here x-ray shows no signs of pulmonary edema here she does have swelling to lower extremities she is continue her Lasix we will get her follow-up with cardiology she is return if worsening. Medical Records I reviewed the patient's medical records. Lab Data I reviewed the patient's lab results. 03/13/23 19:18 03/13/23 19:18 Radiology Impressions Chest X-Ray 03/13/23 18:57 IMPRESSION: Stable mild cardiomegaly. Mildly increased pulmonary vascular congestion compared to 02/06/2022 radiograph. Laboratory Results WBC 7.07 10^3/uL (3.29-11.43) 03/13/23 19:18 RBC 4.44 10^6/uL (3.85-5.65) 03/13/23 19:18 Hgb 12.70 g/dL (11.27-16.99) 03/13/23 19:18 Hct 40.5 % (36-47) 03/13/23 19:18 MCV 91.2 fl (85-98) 03/13/23 19:18 MCH 28.6 pg (27-33) 03/13/23 19:18 MCHC 31.4 g/dL (30-55) 03/13/23 19:18 RDW 13.6 % (12.1-15.1) 03/13/23 19:18 Plt Count 173 10^3/cmm (157-399) 03/13/23 19:18 MPV 8.7 fL (7.4-10.4) 03/13/23 19:18 Neut % (Auto) 72.2 % 03/13/23 19:18 Lymph % (Auto) 21.5 % 03/13/23 19:18 Andrews % (Auto) 4.5 % 03/13/23 19:18 Eos % (Auto) 1.0 % 03/13/23 19:18 Baso % (Auto) 0.4 % 03/13/23 19:18 Neut # (Auto) 5.10 10^3/uL (1.8-7.7) 03/13/23 19:18 Lymph # (Auto) 1.5 10^3/uL (0.8-4.8) 03/13/23 19:18 Andrews # (Auto) 0.3 10^3/uL (0.2-0.9) 03/13/23 19:18 Eos # (Auto) 0.1 10^3/uL (0.0-0.8) 03/13/23 19:18 Baso # (Auto) 0.0 10^3/uL (0.0-0.1) 03/13/23 19:18 Nucleated RBC % (auto) 0 % 03/13/23 19:18 Nucleated RBCs # 0.0 /100WBC 03/13/23 19:18 Sodium 140 mmol/L (136-145) 03/13/23 19:18 Potassium 4.4 mmol/L (3.5-5.1) 03/13/23 19:18 Chloride 100 mmol/L (98-107) 03/13/23 19:18 Carbon Dioxide 33 mmol/L (22-29) H 03/13/23 19:18 Anion Gap 11.4 (5-19) 03/13/23 19:18 BUN 9 mg/dL (6-20) 03/13/23 19:18 Creatinine 0.8 mg/dL (0.5-0.9) 03/13/23 19:18 GFR Calculation 84.2 mL/min (90-130) L 03/13/23 19:18 Glucose 120 mg/dL (65-115) H 03/13/23 19:18 Calculated Osmolality 290 mOsm/kg (285-295) 03/13/23 19:18 Calcium 9.1 mg/dL (8.5-10.5) 03/13/23 19:18 Total Bilirubin 0.2 mg/dL (0.15-1.2) 03/13/23 19:18 AST 15 U/L (0-32) 03/13/23 19:18 ALT 18 U/L (0-33) 03/13/23 19:18 Alkaline Phosphatase 76 U/L (35-105) 03/13/23 19:18 Troponin T Baseline 13 ng/L (0-10) H 03/13/23 19:18 NT-Pro-B Natriuret Pep 683 pg/mL (0-125) H 03/13/23 19:18 Total Protein 7.1 g/dL (6.6-8.7) 03/13/23 19:18 Albumin 3.9 g/dL (3.5-5.2) 03/13/23 19:18 Globulin 3.2 g/dL (1.3-4.6) 03/13/23 19:18 All radiology interpretation(s) finalized by discharge Discharge Plan Discharge Patient Disposition: Home Clinical Impression: Heart failure Otitis media Qualifiers: Otitis media type: unspecified Chronicity: acute Qualified Code(s): H66.90 - Otitis media, unspecified, unspecified ear Condition: Stable Prescriptions: New cephalexin 500 mg capsule 500 mg PO TID 7 Days Qty: 21 0RF No Action albuterol sulfate [Ventolin HFA] 90 mcg/actuation HFA aerosol inhaler 2 puff inhalation QID Qty: 6.7 0RF albuterol sulfate 90 mcg/actuation HFA aerosol inhaler 2 inh inhalation 6XD PRN (Reason: shortness of breath or wheezing) Qty: 6.7 0RF Lasix 40 mg tablet 40 mg PO DAILY buprenorphine-naloxone [Suboxone] 8-2 mg film 1 film buccal DAILY prednisone 20 mg tablet 40 mg PO daily Qty: 15 0RF Discharge Orders: Discharge ED (Routine); Ordered 03/13/23 Ordered By: Anabel Carey Referrals: Joby Henson MD [Physician] - 1-3 days Discharge Diet: Advance as tolerated Discharge Activity: Resume usual activity Patient Instructions: Heart Failure (ED), Ear Infection (ED) Stand Alone Forms: Work/School Release Coding Level of Care Code ED Director Loss Prevention for Susana Stringer
[2023-03-13 19:22] VITALS: BP 163/119; PULSE 95; RESP 22; O2SAT 95
[2023-03-13 19:34] LABS: Basophils % 0.4 %; Eosinophils # 0.1 10^3/uL (0.0-0.8); Hematocrit 40.5 % (36-47); Lymphocytes # 1.5 10^3/uL (0.8-4.8); Lymphocytes % 21.5 %; Mean Corpuscular HGB Conc 31.4 g/dL (30-55); Mean Corpuscular Hemoglobin 28.6 pg (27-33); Mean Corpuscular Volume 91.2 fl (85-98); Mean Platelet Volume 8.7 fL (7.4-10.4); Monocytes # 0.3 10^3/uL (0.2-0.9); Monocytes % 4.5 %; Neutrophils % 72.2 %; Nucleated Red Blood Cells % 0 %; Platelet Count 173 10^3/cmm (157-399); Red Blood Count 4.44 10^6/uL (3.85-5.65); Red Cell Distribution Width 13.6 % (12.1-15.1); White Blood Count 7.07 10^3/uL (3.29-11.43)
[2023-03-13 19:46] LABS: Troponin(5th) Baseline 13 ng/L (0-10)
[2023-03-13 19:54] LABS: Alanine Aminotransferase 18 U/L (0-33); Albumin Level 3.9 g/dL (3.5-5.2); Alkaline Phosphatase 76 U/L (35-105); Anion Gap 11.4 (5-19); Aspartate Amino Transferase 15 U/L (0-32); Blood Urea Nitrogen 9 mg/dL (6-20); Calcium 9.1 mg/dL (8.5-10.5); Carbon Dioxide 33 mmol/L (22-29); Chloride 100 mmol/L (98-107); Globulin 3.2 g/dL (1.3-4.6); Glomerular Filtration Rate 84.2 mL/min (90-130); Glucose 120 mg/dL (65-115); NT Pro B Type Natriuretic Pept 683 pg/mL (0-125); Osmolality Calculated 290 mOsm/kg (285-295); Potassium 4.4 mmol/L (3.5-5.1); Sodium 140 mmol/L (136-145); Total Bilirubin 0.2 mg/dL (0.15-1.2); Total Protein 7.1 g/dL (6.6-8.7)
[2023-03-13 20:49] VITALS: BP 138/92; PULSE 96; RESP 19; O2SAT 97
--- NOTE | 2023-03-18 10:32 | DCPLANNER ---
Message sent to Cardiology for a follow up on CHF
== END 2023-03-13 21:02 | disposition home or self-care (01) ==
PROVIDERS: Emergency Provider Emergency Medicine
DX: I50.9 Heart failure, unspecified (principal); Z72.0 Tobacco use; H66.91 Otitis media, unspecified, right ear
CPT/HCPCS: 71045; 80053; 83880; 84484; 85025; 93005; 99285

== ENCOUNTER 2023-03-23 22:16 | Emergency (ER) | payer MEDICAID, SELFPAY ==
[2023-03-23 22:22] VITALS: BP 145/82; PULSE 91; RESP 19; TEMP 36.2; O2SAT 91
[2023-03-23 23:43] VITALS: BP 155/124; PULSE 96; RESP 20; O2SAT 92
--- NOTE | 2023-03-23 23:49 | XRR_ITS ---
PROCEDURE INFORMATION: Exam: XR Chest Exam date and time: 03/23/2023 11:58 PM Age: 32 years old Clinical indication: Other: SOA, HX chf; Prior surgery; Surgery date: 6+ months; Surgery type: Oh TECHNIQUE: Imaging protocol: Radiologic exam of the chest. Views: 1 view. COMPARISON: CR (CHEST, ) 03/13/2023 7:17 PM FINDINGS: Lungs: Hypoaerated lungs without focal consolidation identified. Pleural spaces: Unremarkable. No pleural effusion. No pneumothorax. Heart/Mediastinum: Cardiac silhouette is mildly enlarged. Bones/joints: Prior median sternotomy. No acute thoracic fractures are identified. XR/XR chest 1V [id number] IMPRESSION: No focal acute pulmonary disease identified.
[2023-03-24 00:06] LABS: Influenza A by IFA negative (Negative); Influenza B by IFA positive (Negative)
[2023-03-24 00:07] LABS: SARS Covid-2 Antigen negative (Negative)
[2023-03-24 00:23] LABS: Basophils % 0.3 %; Eosinophils % 0.8 %; Hematocrit 42.6 % (36-47); Lymphocytes # 1.5 10^3/uL (0.8-4.8); Lymphocytes % 40.4 %; Mean Corpuscular HGB Conc 32.2 g/dL (30-55); Mean Corpuscular Hemoglobin 28.9 pg (27-33); Mean Corpuscular Volume 89.9 fl (85-98); Monocytes # 0.3 10^3/uL (0.2-0.9); Monocytes % 7.4 %; Neutrophils # 1.92 10^3/uL (1.8-7.7); Neutrophils % 50.6 %; Nucleated Red Blood Cells % 0 %; Platelet Count 139 10^3/cmm (157-399); Red Blood Count 4.74 10^6/uL (3.85-5.65); Red Cell Distribution Width 14.2 % (12.1-15.1); White Blood Count 3.79 10^3/uL (3.29-11.43)
--- NOTE | 2023-03-24 00:24 | ED_ITS ---
Documented by User: BENY Navarrete 03/24/23 00:46 HPI - URI/Sore Throat 2 General: Chief Complaint: Upper Respiratory Infection Stated Complaint: SOB weezing pain ears Time Seen by Provider: 03/23/23 23:04 Source: patient Mode of arrival: ambulatory Limitations: no limitations History of Present Illness: Patient presents emergency department today for evaluation treatment of several days of increased shortness of breath and wheezing. Patient reports she has a history of CHF and has noticed an increase in her bilateral lower extremity swelling. She denies any history of COPD or asthma. Patient states the last couple of days she has had an increase in sore throat and also notes an ulcer to the right side of her tongue. She states that has been there for quite some time. She reports it started as a small area she bit and she thought it was just a flap of skin and admits to picking at it. Since then, it has continued to get bigger and more painful. Review of Systems 2 General: Reports: 10 or more systems reviewed and unremarkable except in HPI and below PFSH ED 2 PFSH: Medical History Endocarditis Septic embolism Surgical History History of open heart surgery Social History Smoking and tobacco/nicotine status: current every day tobacco/nicotine user Alcohol intake: never Substance/Drug Use: never Physical Exam 2 Const: COMMON NORMALS: no acute distress, patient oriented x3 and alert O THER: Patient is pleasant and answers her own history but looks like she does not feel well. She looks fatigued. HENMT: OTHER: Pharynx is mildly erythematous but without exudate. Patient has a large ulceration noted to the right side of her tongue. Eye: COMMON NORMALS: Equal, round and reactive pupils present, EOMs intact bilaterally and conjunctivae normal CONJUNCTIVA: Yes conjunctivae normal P UPIL: Yes Equal, round and reactive pupils present Neck/C-Spine: COMMON NORMALS: no JVD Lymph: LYMPHATIC: no lymphadenopathy noted Resp: OTHER: Patient with slight tachypnea. Generalized wheezing and rhonchi in bilateral lung barney when able to auscultate lung noises. Breath sounds overall seem diminished. Pulse ox 91 to 92% on room air. Cardio: COMMON NORMALS: no JVD, regular rate and regular rhythm RATE: r egular rate RHYTHM: regular rhythm : COMMON NORMALS: Yes no CVA tenderness BLADDER/KIDNEY EXAM: Yes no CVA tenderness Back/Pelvis: COMMON NORMALS: no CVA tenderness, thoracic and lumbar spine normal to inspection and thoraco-lumbar ROM normal Extremity: COMMON NORMALS: normal to inspection and full ROM NARRATIVE EXTREMITY EXAM: Bilateral lower extremity edema Neuro: COMMON NORMALS: patient oriented x3 SENSORIUM/ORIENTATION: Yes alert Skin: COMMON NORMALS: no rashes or lesions noted and turgor normal GENERAL SKIN EXAM: no rashes or lesions noted and turgor normal Course 2 Vital Signs: Vital signs: Vital Signs Temperature 97.2 F L 03/23/23 22:22 Pulse Rate 100 03/24/23 02:18 Respiratory Rate 18 03/24/23 02:18 Blood Pressure 149/94 03/24/23 02:18 Pulse Oximetry 92 03/24/23 02:18 Oxygen Delivery Me thod Nasal Cannula 03/24/23 02:18 Oxygen Flow Rate 3 03/24/23 02:18 MDM - URI/Sore Throat Medical Decision Making Patient presents emergency department today for evaluation and treatment of acute worsening shortness of breath and wheezing. Patient does have underlying CHF with a history of open heart surgery. She has increased lower extremity edema and wheezing and crackles heard on auscultation. Patient's lab work is still being processed however, she tested negative for COVID but positive for influenza B. Unfortunately, I think she may have CHF exacerbation imposed with influenza B. We are still waiting for CHF lab work and final x-ray interpretation to come in. Transfer of care to Dr. Matson at 0100 for continued monitoring of these labs and images to determine appropriate treatment plan. Differential Diagnosis Likely upper respiratory infection, viral infection, influenza (B) and pharyngitis; Unlikely croup, otitis media or sinusitis Lab Data 03/24/23 00:15 03/24/23 00:15 Radiology Impressions Chest X-Ray 03/23/23 23:49 IMPRESSION: No focal acute pulmonary disease identified. Laboratory Results WBC 3.79 10^3/uL (3.29-11.43) 03/24/23 00:15 RBC 4.74 10^6/uL (3.85-5.65) 03/24/23 00:15 Hgb 13.70 g/dL (11.27-16.99) 03/24/23 00:15 Hct 42.6 % (36-47) 03/24/23 00:15 MCV 89.9 fl (85-98) 03/24/23 00:15 MCH 28.9 pg (27-33) 03/24/23 00:15 MCHC 32.2 g/dL (30-55) 03/24/23 00:15 RDW 14.2 % (12.1-15.1) 03/24/23 00:15 Plt Count 139 10^3/cmm (157-399) L 03/24/23 00:15 MPV 9.0 fL (7.4-10.4) 03/24/23 00:15 Neut % (Auto) 50.6 % 03/24/23 00:15 Lymph % (Auto) 40.4 % 03/24/23 00:15 [place] % (Auto) 7.4 % 03/24/23 00:15 Eos % (Auto) 0.8 % 03/24/23 00:15 Baso % (Auto) 0.3 % 03/24/23 00:15 Neut # (Auto) 1.92 10^3/uL (1.8-7.7) 03/24/23 00:15 Lymph # (Auto) 1.5 10^3/uL (0.8-4.8) 03/24/23 00:15 [place] # (Auto) 0.3 10^3/uL (0.2-0.9) 03/24/23 00:15 Eos # (Auto) 0.0 10^3/uL (0.0-0.8) 03/24/23 00:15 Baso # (Auto) 0.0 10^3/uL (0.0-0.1) 03/24/23 00:15 Nucleated RBC % (auto) 0 % 03/24/23 00:15 Nucleated RBCs # 0.0 /100WBC 03/24/23 00:15 Specimen Type Venous 03/24/23 01:17 Sample Site Not specified 03/24/23 01:17 Wojciech Test N/a 03/24/23 01:17 VBG pH 7.36 (7.32-7.42) 03/24/23 01:17 VBG pCO2 63.6 mmHg (41-51) H* 03/24/23 01:17 VBG pO2 36.4 mmHg (25-40) 03/24/23 01:17 VBG HCO3 35.7 mmol/L (24-28) H 03/24/23 01:17 VBG Base Excess 7.8 mmol/L (-3.0-3.0) H 03/24/23 01:17 VBG Hematocrit 43.4 % (37-47) 03/24/23 01:17 O2 Delivery Device Nc 03/24/23 01:17 O2 Liters/Min 1.0 % 03/24/23 01:17 FiO2 24.0 % 03/24/23 01:17 Instructional Materials Director ID Chay 03/24/23 01:17 Sodium 139 mmol/L (136-145) 03/24/23 00:15 Potassium 4.1 mmol/L (3.5-5.1) 03/24/23 00:15 Chloride 97 mmol/L (98-107) L 03/24/23 00:15 Carbon Dioxide 31 mmol/L (22-29) H 03/24/23 00:15 Anion Gap 15.1 (5-19) 03/24/23 00:15 BUN 12 mg/dL (6-20) 03/24/23 00:15 Creatinine 0.8 mg/dL (0.5-0.9) 03/24/23 00:15 GFR Calculation 84.2 mL/min (90-130) L 03/24/23 00:15 Glucose 118 mg/dL (65-115) H 03/24/23 00:15 Calculated Osmolality 289 mOsm/kg (285-295) 03/24/23 00:15 Calcium 9.2 mg/dL (8.5-10.5) 03/24/23 00:15 Total Bilirubin 0.2 mg/dL (0.15-1.2) 03/24/23 00:15 AST 37 U/L (0-32) H 03/24/23 00:15 ALT 29 U/L (0-33) 03/24/23 00:15 Alkaline Phosphatase 79 U/L (35-105) 03/24/23 00:15 NT-Pro-B Natriuret Pep 227 pg/mL (0-125) H 03/24/23 00:15 Total Protein 7.5 g/dL (6.6-8.7) 03/24/23 00:15 Albumin 4.0 g/dL (3.5-5.2) 03/24/23 00:15 Globulin 3.5 g/dL (1.3-4.6) 03/24/23 00:15 HCG, Qual Negative (Negative) 03/24/23 00:43 Ser , Semi-Qnt 1.00 mIU/mL 03/24/23 00:15 Urine Color Yellow (Yellow) 03/24/23 00:43 Urine Appearance Clear (CLEAR) 03/24/23 00:43 Urine pH 5 (5-7) 03/24/23 00:43 Ur Specific Homer 1.025 (1.005-1.030) 03/24/23 00:43 Urine Protein Neg (Negative) 03/24/23 00:43 Urine Glucose (UA) Norm (Normal) 03/24/23 00:43 Urine Ketones Negative (Negative) 03/24/23 00:43 Urine Blood Neg (Negative) 03/24/23 00:43 Urine Nitrate Negative (Negative) 03/24/23 00:43 Urine Bilirubin Neg (Negative) 03/24/23 00:43 Urine Urobilinogen Neg mg/dL (Negative) 03/24/23 00:43 Ur Leukocyte Esterase Negative (Negative) 03/24/23 00:43 Influenza Type A Ag negative (Negative) 03/23/23 23:37 Influenza Type B Ag positive (Negative) H 03/23/23 23:37 SARS-CoV-2 Ag (Rapid) negative (Negative) 03/23/23 23:37 All radiology interpretation(s) finalized by discharge Discharge Plan Discharge Patient Disposition: Home Clinical Impression: Influenza B, Acute respiratory failure with hypoxia Acute exacerbation of CHF (congestive heart failure) Qualifiers: Heart failure type: unspecified Qualified Code(s): I50.9 - Heart failure, unspecified Condition: Stable Prescriptions: No Action albuterol sulfate [Ventolin HFA] 90 mcg/actuation HFA aerosol inhaler 2 puff inhalation QID Qty: 6.7 0RF albuterol sulfate 90 mcg/actuation HFA aerosol inhaler 2 inh inhalation 6XD PRN (Reason: shortness of breath or wheezing) Qty: 6.7 0RF Lasix 40 mg tablet 40 mg PO DAILY buprenorphine-naloxone [Suboxone] 8-2 mg film 1 film buccal DAILY prednisone 20 mg tablet 40 mg PO daily Qty: 15 0RF Discharge Orders: Discharge ED (Routine); Ordered 03/24/23 Ordered By: Yassine Matson Other Ambulatory Orders: DME: Oxygen (Order) Location: None Selected Ordered By: Yassine Matson Patient Instructions: Congestive Heart Failure, Influenza (ED), Acute Respiratory Failure (ED) Activity Restrictions/Additional Instructions: He qualified for home oxygen at 2 L per nasal cannula while at rest and 3 L per nasal cannula with movement. Please increase your Lasix to 60 mg daily for the next 5 days. Please follow-up with your family practice doctor within the next 7 days for further evaluation and treatment. If your symptoms worsen please return to the ER. Stand Alone Forms: Work/School Release Coding Level of Care Code ED Director Of Teacher Education for Chg Fwd Documented by User: Yassine Matson DO 03/24/23 02:33 HPI - URI/Sore Throat 2 General: Chief Complaint: Upper Respiratory Infection Stated Complaint: SOB weezing pain ears Time Seen by Provider: 03/23/23 23:04 [facility] ED 2 PFSH: Medical History Endocarditis Septic embolism Surgical History History of open heart surgery Social History Smoking and tobacco/nicotine status: current every day tobacco/nicotine user Alcohol intake: never Substance/Drug Use: never Course 2 Vital Signs: Vital signs: Vital Signs Temperature 97.2 F L 03/23/23 22:22 Pulse Rate 100 03/24/23 02:18 Respiratory Rate 18 03/24/23 02:18 Blood Pressure 149/94 01/30/24 02:18 Pulse Oximetry 92 03/24/23 02:18 Oxygen Delivery Me thod Nasal Cannula 03/24/23 02:18 Oxygen Flow Rate 3 03/24/23 02:18 MDM - URI/Sore Throat Medical Decision Making Patient presents emergency department today for evaluation and treatment of acute worsening shortness of breath and wheezing. Patient does have underlying CHF with a history of open heart surgery. She has increased lower extremity edema and wheezing and crackles heard on auscultation. Patient's lab work is still being processed however, she tested negative for COVID but positive for influenza B. Unfortunately, I think she may have CHF exacerbation imposed with influenza B. We are still waiting for CHF lab work and final x-ray interpretation to come in. Transfer of care to Dr. Matson at 0100 for continued monitoring of these labs and images to determine appropriate treatment plan. Talked with the patient reviewed the lab work. Patient feels comfortable going home if we get home oxygen. Patient be given an additional dose of Lasix 40 mg IV tonight and will be instructed to take 60 mg daily for the next 5 days. Patient failed her home oxygen test patient requires 2 L at rest and 3 L at movement which we will acquire from home. Lab Data 03/24/23 00:15 03/24/23 00:15 Radiology Impressions Chest X-Ray 03/23/23 23:49 IMPRESSION: No focal acute pulmonary disease identified. Laboratory Results WBC 3.79 10^3/uL (3.29-11.43) 03/24/23 00:15 RBC 4.74 10^6/uL (3.85-5.65) 03/24/23 00:15 Hgb 13.70 g/dL (11.27-16.99) 03/24/23 00:15 Hct 42.6 % (36-47) 03/24/23 00:15 MCV 89.9 fl (85-98) 03/24/23 00:15 MCH 28.9 pg (27-33) 03/24/23 00:15 MCHC 32.2 g/dL (30-55) 03/24/23 00:15 RDW 14.2 % (12.1-15.1) 03/24/23 00:15 Plt Count 139 10^3/cmm (157-399) L 03/24/23 00:15 MPV 9.0 fL (7.4-10.4) 03/24/23 00:15 Neut % (Auto) 50.6 % 03/24/23 00:15 Lymph % (Auto) 40.4 % 03/24/23 00:15 [place] % (Auto) 7.4 % 03/24/23 00:15 Eos % (Auto) 0.8 % 03/24/23 00:15 Baso % (Auto) 0.3 % 03/24/23 00:15 Neut # (Auto) 1.92 10^3/uL (1.8-7.7) 03/24/23 00:15 Lymph # (Auto) 1.5 10^3/uL (0.8-4.8) 03/24/23 00:15 [place] # (Auto) 0.3 10^3/uL (0.2-0.9) 03/24/23 00:15 Eos # (Auto) 0.0 10^3/uL (0.0-0.8) 03/24/23 00:15 Baso # (Auto) 0.0 10^3/uL (0.0-0.1) 03/24/23 00:15 Nucleated RBC % (auto) 0 % 03/24/23 00:15 Nucleated RBCs # 0.0 /100WBC 03/24/23 00:15 Specimen Type Venous 03/24/23 01:17 Sample Site Not specified 03/24/23 01:17 Wojciech Test N/a 03/24/23 01:17 VBG pH 7.36 (7.32-7.42) 03/24/23 01:17 VBG pCO2 63.6 mmHg (41-51) H* 03/24/23 01:17 VBG pO2 36.4 mmHg (25-40) 03/24/23 01:17 VBG HCO3 35.7 mmol/L (24-28) H 03/24/23 01:17 VBG Base Excess 7.8 mmol/L (-3.0-3.0) H 03/24/23 01:17 VBG Hematocrit 43.4 % (37-47) 03/24/23 01:17 O2 Delivery Device Nc 03/24/23 01:17 O2 Liters/Min 1.0 % 03/24/23 01:17 FiO2 24.0 % 03/24/23 01:17 Instructional Materials Director ID Chay 03/24/23 01:17 Sodium 139 mmol/L (136-145) 03/24/23 00:15 Potassium 4.1 mmol/L (3.5-5.1) 03/24/23 00:15 Chloride 97 mmol/L (98-107) L 03/24/23 00:15 Carbon Dioxide 31 mmol/L (22-29) H 03/24/23 00:15 Anion Gap 15.1 (5-19) 03/24/23 00:15 BUN 12 mg/dL (6-20) 03/24/23 00:15 Creatinine 0.8 mg/dL (0.5-0.9) 03/24/23 00:15 GFR Calculation 84.2 mL/min (90-130) L 03/24/23 00:15 Glucose 118 mg/dL (65-115) H 03/24/23 00:15 Calculated Osmolality 289 mOsm/kg (285-295) 03/24/23 00:15 Calcium 9.2 mg/dL (8.5-10.5) 03/24/23 00:15 Total Bilirubin 0.2 mg/dL (0.15-1.2) 03/24/23 00:15 AST 37 U/L (0-32) H 03/24/23 00:15 ALT 29 U/L (0-33) 03/24/23 00:15 Alkaline Phosphatase 79 U/L (35-105) 03/24/23 00:15 NT-Pro-B Natriuret Pep 227 pg/mL (0-125) H 03/24/23 00:15 Total Protein 7.5 g/dL (6.6-8.7) 03/24/23 00:15 Albumin 4.0 g/dL (3.5-5.2) 03/24/23 00:15 Globulin 3.5 g/dL (1.3-4.6) 03/24/23 00:15 HCG, Qual Negative (Negative) 03/24/23 00:43 Ser , Semi-Qnt 1.00 mIU/mL 03/24/23 00:15 Urine Color Yellow (Yellow) 03/24/23 00:43 Urine Appearance Clear (CLEAR) 03/24/23 00:43 Urine pH 5 (5-7) 03/24/23 00:43 Ur Specific [place] 1.025 (1.005-1.030) 03/24/23 00:43 Urine Protein Neg (Negative) 03/24/23 00:43 Urine Glucose (UA) Norm (Normal) 03/24/23 00:43 Urine Ketones Negative (Negative) 03/24/23 00:43 Urine Blood Neg (Negative) 03/24/23 00:43 Urine Nitrate Negative (Negative) 03/24/23 00:43 Urine Bilirubin Neg (Negative) 03/24/23 00:43 Urine Urobilinogen Neg mg/dL (Negative) 03/24/23 00:43 Ur Leukocyte Esterase Negative (Negative) 03/24/23 00:43 Influenza Type A Ag negative (Negative) 03/23/23 23:37 Influenza Type B Ag positive (Negative) H 03/23/23 23:37 SARS-CoV-2 Ag (Rapid) negative (Negative) 03/23/23 23:37 Discharge Plan Discharge Patient Disposition: Home Clinical Impression: Influenza B, Acute respiratory failure with hypoxia Acute exacerbation of CHF (congestive heart failure) Qualifiers: Heart failure type: unspecified Qualified Code(s): I50.9 - Heart failure, unspecified Condition: Stable Prescriptions: No Action albuterol sulfate [Ventolin HFA] 90 mcg/actuation HFA aerosol inhaler 2 puff inhalation QID Qty: 6.7 0RF albuterol sulfate 90 mcg/actuation HFA aerosol inhaler 2 inh inhalation 6XD PRN (Reason: shortness of breath or wheezing) Qty: 6.7 0RF Lasix 40 mg tablet 40 mg PO DAILY buprenorphine-naloxone [Suboxone] 8-2 mg film 1 film buccal DAILY prednisone 20 mg tablet 40 mg PO daily Qty: 15 0RF Discharge Orders: Discharge ED (Routine); Ordered 03/24/23 Ordered By: Yassine Matson Other Ambulatory Orders: DME: Oxygen (Order) Location: None Selected Ordered By: Yassine Matson Patient Instructions: Congestive Heart Failure, Influenza (ED), Acute Respiratory Failure (ED) Activity Restrictions/Additional Instructions: He qualified for home oxygen at 2 L per nasal cannula while at rest and 3 L per nasal cannula with movement. Please increase your Lasix to 60 mg daily for the next 5 days. Please follow-up with your family practice doctor within the next 7 days for further evaluation and treatment. If your symptoms worsen please return to the ER. Stand Alone Forms: Work/School Release Coding Level of Care Code ED Director Of Teacher Education for Susana Stringer
[2023-03-24 00:47] LABS: Alanine Aminotransferase 29 U/L (0-33); Alkaline Phosphatase 79 U/L (35-105); Anion Gap 15.1 (5-19); Aspartate Amino Transferase 37 U/L (0-32); Blood Urea Nitrogen 12 mg/dL (6-20); Calcium 9.2 mg/dL (8.5-10.5); Carbon Dioxide 31 mmol/L (22-29); Chloride 97 mmol/L (98-107); Creatinine Clr Calc Pharmacy 151.7615; Globulin 3.5 g/dL (1.3-4.6); Glomerular Filtration Rate 84.2 mL/min (90-130); Glucose 118 mg/dL (65-115); NT Pro B Type Natriuretic Pept 227 pg/mL (0-125); Osmolality Calculated 289 mOsm/kg (285-295); Potassium 4.1 mmol/L (3.5-5.1); Sodium 139 mmol/L (136-145); Total Bilirubin 0.2 mg/dL (0.15-1.2); Total Protein 7.5 g/dL (6.6-8.7)
[2023-03-24 00:48] LABS: HCG Qualitative Urine. Negative (Negative)
[2023-03-24 01:23] LABS: Base Excess VBG 7.8 mmol/L (-3.0-3.0); Blood Gas Sample Site Not specified; Blood Gas Sample Type Venous; HCO3 VBG 35.7 mmol/L (24-28); Oxygen Device NC; PO2 VBG 36.4 mmHg (25-40); Venous Blood Gas Hematocrit 43.4 % (37-47); pH VBG 7.36 (7.32-7.42)
[2023-03-24 01:28] LABS: PCO2 VBG 63.6 mmHg (41-51)
[2023-03-24 01:30] LABS: Add Urine Microscopic? NO; Bilirubin Urine Neg (Negative); Blood Urine Neg (Negative); Glucose Urine UA Norm (Normal); Ketones Urine Negative (Negative); Leukocyte Esterase Urine Negative (Negative); Nitrate Urine Negative (Negative); Protein Urine Neg (Negative); Specific Gravity, Urine 1.025 (1.005-1.030); Urine Appearance Clear (CLEAR); Urine Color Yellow (Yellow); Urobilinogen Urine Neg (Negative); pH Urine 5 (5-7)
--- NOTE | 2023-03-24 01:30 | PC.NURSE ---
Patients oxygen sats running at 85-88% on RA. Pt placed on 2lnc. Provider notified.
[2023-03-24 01:32] LABS: Charge for UA Resulting for Rev
[2023-03-24] MEDS: lidocaine 2% viscous 15 mL UDC 5 ML MUCOUS MEM (01:48)
[2023-03-24 02:04] VITALS: O2SAT 85; O2SAT 95
[2023-03-24] MEDS: FUROsemide 10 mg/mL SDV 4mL 40 MG IVP (02:12)
[2023-03-24 02:18] VITALS: BP 149/94; PULSE 100; RESP 18; O2SAT 92
== END 2023-03-24 03:44 | disposition home or self-care (01) ==
PROVIDERS: Emergency Provider Physician Assistant
DX: J10.1 Influenza due to other identified influenza virus with other respiratory manifestations (principal); J96.01 Acute respiratory failure with hypoxia; I11.0 Hypertensive heart disease with heart failure; I50.9 Heart failure, unspecified; Z11.52 Encounter for screening for COVID-19; Z72.0 Tobacco use
CPT/HCPCS: 71045; 80053; 81003; 81025; 82803; 83880; 84702; 85025; 87426; 87804; 96374; 99284; J1940

== ENCOUNTER → 2023-04-30 14:01 | Outpatient (BNVA) | payer MEDICAID, SELFPAY | PROVIDERS: Visit Provider Family Medicine | DX: R73.03 Prediabetes (principal); R60.0 Localized edema | CPT/HCPCS: 80053; 83036; 84439; 84443 ==

== ENCOUNTER 2023-11-02 20:37 | Emergency (ER) | payer MEDICAID, SELFPAY ==
[2023-11-02 20:49] VITALS: BP 135/81; PULSE 91; RESP 24; TEMP 36.4; O2SAT 83; BMI 60.2
--- NOTE | 2023-11-02 21:04 | XRR_ITS ---
PROCEDURE INFORMATION: Exam: XR Chest Exam date and time: 11/02/2023 9:11 PM Age: 33 years old Clinical indication: Other: Weakness; Prior surgery; Surgery date: 6+ months; Surgery type: Open heart TECHNIQUE: Imaging protocol: Radiologic exam of the chest. Views: 1 view. COMPARISON: CR XR chest 1V [id number] 03/23/2023 11:58 PM FINDINGS: Lungs: Low lung volumes. No focal consolidation. Pleural spaces: Unremarkable. No pleural effusion. No pneumothorax. Heart/Mediastinum: Cardiac silhouette remains mildly enlarged. Bones/joints: Median sternotomy wires again noted. XR/XR chest 1V portable [id number] IMPRESSION: No acute cardiopulmonary findings.
--- NOTE | 2023-11-02 21:09 | ED_ITS ---
HPI - Weakness 2 General: Chief complaint: Weakness Stated complaint: abd pain, n/v Time Seen by Provider: 11/02/23 20:45 History of Present Illness: 33-year-old female with history of morbi d obesity, congestive heart failure, chronic hypoxemic respiratory failure on 2 L nasal cannula at home at all times, and diabetes who presents to the emergency room with weakness and malaise. Says over the weekend she started developing some bodyaches. Has had some diarrhea. Some generalized abdominal cramping. Some congestion. Mild cough. No fevers. No altered mental status. No focal motor deficits. Review of Systems 2 Narrative: Constitutional symptoms: Negative except as documented in HPI. Skin symptoms: Negative except as documented in HPI. Eye symptoms: Negative except as documented in HPI. ENMT symptoms: Negative except as documented in HPI. Respiratory symptoms: Negative except as documented in HPI. Cardiovascular symptoms: Negative except as documented in HPI. Gastrointestinal symptoms: Negative except as documented in HPI. Genitourinary symptoms: Negative except as documented in HPI. Musculoskeletal symptoms: Negative except as documented in HPI. Neurologic symptoms: Negative except as documented in HPI. Psychiatric symptoms: Negative except as documented in HPI. Endocrine symptoms: Negative except as documented in HPI. PFSH ED 2 PFSH: Medical History PTSD (post-traumatic stress disorder) Moderate major depression Pre-diabetes Methamphetamine use disorder, severe, in sustained remission Adult BMI 50.0-59.9 kg/sq m IV drug user CHF (congestive heart failure) Endocarditis Septic embolism Surgical History Hx of cholecystectomy History of open heart surgery Tricuspid valve replacement Social History Smoking and tobacco/nicotine status: current every day tobacco/nicotine user e- cigarettes E-Cigarette Details: e-cigarette, vaporizer device and with nicotine Alcohol intake: current Alcohol intake frequency: holidays/special occasions only Substance/Drug Use: former Date of last use: 6yrs Former substance use details: IVDU, pills Adopted: No service: No Current occupational exposures/hazards: No Current gender identity: Female Physical Exam 2 Narrative: EXAM NARRATIVE: General: Alert, no acute distress. Skin: Warm, dry. Head: Normocephalic, atraumatic. Neck: Supple, trachea midline. Eye: Extraocular movements are intact. Ears, nose, mouth and throat: mucosa moist. Cardiovascular: Regular, Normal peripheral perfusion. Respiratory: Lungs are clear to auscultation, respirations are non-labored, breath sounds are equal, Symmetrical chest wall expansion. Gastrointestinal: Soft, Nontender, Non distended Musculoskeletal: Normal ROM, no deformity. Neurological: Alert and oriented, No focal neurological deficit observed. Psychiatric: Cooperative, appropriate mood & affect. Course 2 Vital Signs: Vital signs: Vital Signs Temperature 97.6 F 11/02/23 20:49 Pulse Rate 83 11/02/23 22:31 Respiratory Rate 16 11/02/23 22:31 Blood Pressure 141/83 11/02/23 22:31 Pulse Oximetry 95 11/02/23 23:30 Oxygen Delivery Me thod Nasal Cannula 11/02/23 23:30 Oxygen Flow Rate 2 11/02/23 22:31 MDM - Weakness Medical Decision Making Medical decision making: Differential diagnosis for patient presenting with generalized weakness including but not limited to and based on the above HPI, review of systems and physical exam: Sepsis. Dehydration. Renal failure. Electrolyte abnormalities. Anemia. Congestive heart failure. Hypotension. Coronary syndrome. Hepatitis. Cirrhosis. Infections such as pneumonia, urinary tract infection, [place] illness, Cellulitis, Viral infections including influenza and Covid-19. Workup: labwork and lab/exam driven imaging ordered to evaluate, rule in and rule out above pathologies. EKG: Time 2141. Rate 87. Normal sinus rhythm, No ST-T changes, no ectopy, normal DE & QRS intervals, This was reviewed and interpreted by myself the ER physician at 2145 Chest x-ray: Sternotomy wires in place. Stable cardiomegaly. No acute process. No infiltrate. No pneumothorax. This was reviewed and interpreted by myself the ER physician. CT of the abdomen pelvis with contrast: Hepatomegaly but no signs of obstruction. She has had a cholecystectomy in the past. This was reviewed and interpreted by myself the emergency room physician. I also reviewed the radiology report. Lab Review: Laboratory results were reviewed and interpreted by myself the emergency room physician. No leukocytosis. No anemia. Platelets are little low at 142. BUN and creatinine are 17 and 1. Of note she has liver enzymes at over 1400 for her AST and ALT. Hepatitis panel was ordered. She has hepatitis antibodies but she received treatment for hepatitis about a year ago and says she had a curative treatment. She has not had any further IV drug use. Consultation: I spoke with Dr. Salter who is on-call for the hospitalist. We discussed admission versus going home. The patient is not severely acutely ill at this time. Dr. Salter has added EBV and a couple of other lab tests. I reviewed the patient's medical record. Reexamination: Patient remained stable. No increased work of breathing. No altered mental status. No focal motor deficits. I offered the patient admission and repeat labs tomorrow after some hydration. She has her daughter here who needs to go to school tomorrow and feels that she is okay to go home. She says she has a primary care provider and will call tomorrow for follow-up. Assessment and plan: Acute hepatitis -IV Zofran in the emergency room. - Discharged home - Discussed findings and plan with patient. Answered any questions. - All laboratory values were reviewed and interpreted personally by myself, the ER physician - All imaging was reviewed and interpreted personally by myself, the ER physician. - Evaluation and treatment of this problem were appropriate in the emergency setting Lab Data 11/02/23 21:13 11/02/23 21:13 Radiology Impressions Chest X-Ray 11/02/23 21:04 IMPRESSION: No acute cardiopulmonary findings. Abdomen/Pelvis CT 11/02/23 22:22 IMPRESSION: 1. No acute findings in the abdomen/pelvis. 2. Hepatomegaly with diffuse hepatic steatosis. 3. Status post cholecystectomy. 4. Fat containing ventral hernia along the upper abdominal midline. Laboratory Results WBC 8.53 10^3/uL (3.29-11.43) 11/02/23 21:13 RBC 4.72 10^6/uL (3.85-5.65) 11/02/23 21:13 Hgb 13.60 g/dL (11.27-16.99) 11/02/23 21:13 Hct 43.0 % (36-47) 11/02/23 21:13 MCV 91.1 fl (85-98) 11/02/23 21:13 MCH 28.8 pg (27-33) 11/02/23 21:13 MCHC 31.6 g/dL (30-55) 11/02/23 21:13 RDW 14.4 % (12.1-15.1) 11/02/23 21:13 Plt Count 142 10^3/cmm (157-399) L 11/02/23 21:13 MPV 9.2 fL (7.4-10.4) 11/02/23 21:13 Neut % (Auto) 79.1 % 11/02/23 21:13 Lymph % (Auto) 14.9 % 11/02/23 21:13 [place] % (Auto) 3.8 % 11/02/23 21:13 Eos % (Auto) 0.6 % 11/02/23 21:13 Baso % (Auto) 0.5 % 11/02/23 21:13 Neut # (Auto) 6.76 10^3/uL (1.8-7.7) 11/02/23 21:13 Lymph # (Auto) 1.3 10^3/uL (0.8-4.8) 11/02/23 21:13 [place] # (Auto) 0.3 10^3/uL (0.2-0.9) 11/02/23 21:13 Eos # (Auto) 0.1 10^3/uL (0.0-0.8) 11/02/23 21:13 Baso # (Auto) 0.0 10^3/uL (0.0-0.1) 11/02/23 21:13 Nucleated RBC % (auto) 0.9 % 11/02/23 21:13 Nucleated RBCs # 0.1 /100WBC 11/02/23 21:13 Sodium 135 mmol/L (136-145) L 11/02/23 21:13 Potassium 4.0 mmol/L (3.5-5.1) 11/02/23 21:13 Chloride 93 mmol/L (98-107) L 11/02/23 21:13 Carbon Dioxide 35 mmol/L (22-29) H 11/02/23 21:13 Anion Gap 11.0 (5-19) 11/02/23 21:13 BUN 17 mg/dL (6-20) 11/02/23 21:13 Creatinine 1.0 mg/dL (0.5-0.9) H 11/02/23 21:13 GFR Calculation 64.7 mL/min (90-130) L 11/02/23 21:13 Glucose 107 mg/dL (65-115) 11/02/23 21:13 Calculated Osmolality 282 mOsm/kg (285-295) L 11/02/23 21:13 Lactic Acid 1.8 mmol/L (0.5-2.2) 11/02/23 21:13 Calcium 8.8 mg/dL (8.5-10.5) 11/02/23 21:13 Total Bilirubin 1.2 mg/dL (0.15-1.2) 11/02/23 21:13 AST 1228 U/L (0-32) H 11/02/23 21:13 ALT 1479 U/L (0-33) H 11/02/23 21:13 Alkaline Phosphatase 97 U/L (35-105) 11/02/23 21:13 C-Reactive Protein 98.6 mg/L (0.0-4.9) H 11/02/23 21:13 Total Protein 6.9 g/dL (6.6-8.7) 11/02/23 21:13 Albumin 4.1 g/dL (3.5-5.2) 11/02/23 21:13 Globulin 2.8 g/dL (1.3-4.6) 11/02/23 21:13 Urine Color Dark yellow (Yellow) A 11/02/23 21:48 Urine Appearance Cloudy (CLEAR) A 11/02/23 21:48 Urine pH 6.5 (5-7) 11/02/23 21:48 Ur Specific [place] 1.020 (1.005-1.030) 11/02/23 21:48 Urine Protein 1+ (Negative) A 11/02/23 21:48 Urine Glucose (UA) Negative (Normal) 11/02/23 21:48 Urine Ketones Negative (Negative) 11/02/23 21:48 Urine Blood Negative (Negative) 11/02/23 21:48 Urine Nitrate Negative (Negative) 11/02/23 21:48 Urine Bilirubin Negative (Negative) 11/02/23 21:48 Urine Urobilinogen 4.0 mg/dL (Negative) H 11/02/23 21:48 Ur Leukocyte Esterase Negative (Negative) 11/02/23 21:48 Urine RBC 0-2 /hpf (0-2) 11/02/23 21:48 Urine WBC 0-5 /hpf (0-5) 11/02/23 21:48 Ur Squamous Epith Cells 0-5 /hpf (0-5) 11/02/23 21:48 Amorphous Sediment Not Reportable 11/02/23 21:48 Urine Bacteria Trace /hpf (NONE) 11/02/23 21:48 Hyaline Casts 0-4 /lpf H 11/02/23 21:48 Coronavirus (PCR) Negative (Negative) 11/02/23 21:09 Hepatitis A IgM Ab Non-reactive (Nonreactive) 11/02/23 21:13 Hep Bs Antigen Non-reactive (Nonreactive) 11/02/23 21:13 Hep B Core IgM Ab Non-reactive (Nonreactive) 11/02/23 21:13 Hepatitis C Antibody Reactive (Nonreactive) H 11/02/23 21:13 Influenza A (PCR) Negative (Negative) 11/02/23 21:09 Influenza Type B (PCR) Negative (Negative) 11/02/23 21:09 RSV (PCR) Negative (Negative) 11/02/23 21:09 All radiology interpretation(s) finalized by discharge Discharge Plan Discharge Patient Disposition: Home Clinical Impression: Acute hepatitis Condition: Stable Prescriptions: New ondansetron 8 mg tablet,disintegrating 8 mg PO Q6H Qty: 14 0RF Rx Instructions: Take 1/2-1 tab every 6 hours as needed for nausea and vomiting No Action albuterol sulfate [Ventolin HFA] 90 mcg/actuation HFA aerosol inhaler 2 puff inhalation QID Qty: 6.7 0RF albuterol sulfate 90 mcg/actuation HFA aerosol inhaler 2 inh inhalation 6XD PRN (Reason: shortness of breath or wheezing) Qty: 6.7 0RF metformin 500 mg tablet 500 mg PO BID cetirizine [Zyrtec] 10 mg tablet 10 mg PO DAILY Qty: 30 0RF torsemide 20 mg tablet 20 mg PO BID Qty: 60 0RF Rx Instructions: at 7am and 1pm daily fluconazole 150 mg tablet 150 mg PO Q3D Qty: 2 0RF Rx Instructions: may repeat second dose 72 hrs after first dose if symptoms persist cephalexin 500 mg tablet 500 mg PO TID 7 Days Qty: 21 0RF buprenorphine-naloxone [Suboxone] 8-2 mg film 1 film buccal DAILY Discharge Orders: Discharge ED (Routine); Ordered 11/02/23 Ordered By: Dana Palomo Referrals: Irving Franco MD [Primary Care Provider] - Discharge Diet: Usual diet Discharge Activity: Increase activity as tolerated Activity Restrictions/Additional Instructions: You must have follow-up with your primary care provider in the next 1 to 2 days for repeat liver enzymes. Thank you for choosing [facility] for your healthcare needs today. Please realize this is an emergency room and that we are providing you with a medical screening exam and this may not be complete and all inclusive of all the testing and or work up that you may need to determine your ailment or severity of your illness. You have been screened and evaluated and felt safe for discharge. Health conditions do change or evolve sometimes and as such it is important that you follow up with your Primary Doctor to be re checked, 3-5 days is a general good time frame for follow up. 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 [employer] Related Data Home Medications Medication Instructions Recorded Confirmed buprenorphine 8 mg-naloxone 2 mg 1 film buccal DAILY 02/11/22 08/13/23 sublingual film (Suboxone) metformin 500 mg tablet 500 mg PO BID 04/30/23 08/13/23 Previous Rx's Medication Instructions Recorded albuterol sulfate 90 mcg/actuation 2 puff inhalation QID #6.7 grams 07/16/22 aerosol inhaler (Ventolin HFA) albuterol sulfate 90 mcg/actuation 2 inh inhalation 6XD PRN shortness 01/17/23 aerosol inhaler of breath or wheezing #6.7 grams cetirizine 10 mg tablet (Zyrtec) 10 mg PO DAILY #30 tabs 04/30/23 torsemide 20 mg tablet 20 mg PO BID #60 tabs 04/30/23 fluconazole 150 mg tablet 150 mg PO Q3D 2 doses #2 tabs 05/07/23 cephalexin 500 mg tablet 500 mg PO TID 7 days #21 tabs 08/13/23 ondansetron 8 mg disintegrating 8 mg PO Q6H #14 tabs 11/02/23 tablet Allergies Allergy/AdvReac Type Severity Reaction Status Date / Time No Known Allergies Allergy Verified 11/02/23 20:53
[2023-11-02 21:17] VITALS: BP 158/92; PULSE 102; RESP 18; O2SAT 95
[2023-11-02 21:21] LABS: Basophils % 0.5 %; Eosinophils # 0.1 10^3/uL (0.0-0.8); Eosinophils % 0.6 %; Lymphocytes # 1.3 10^3/uL (0.8-4.8); Lymphocytes % 14.9 %; Mean Corpuscular HGB Conc 31.6 g/dL (30-55); Mean Corpuscular Hemoglobin 28.8 pg (27-33); Mean Corpuscular Volume 91.1 fl (85-98); Mean Platelet Volume 9.2 fL (7.4-10.4); Monocytes # 0.3 10^3/uL (0.2-0.9); Monocytes % 3.8 %; Neutrophils # 6.76 10^3/uL (1.8-7.7); Neutrophils % 79.1 %; Nucleated Red Blood Cells # 0.1 /100WBC; Nucleated Red Blood Cells % 0.9 %; Platelet Count 142 10^3/cmm (157-399); Red Blood Count 4.72 10^6/uL (3.85-5.65); Red Cell Distribution Width 14.4 % (12.1-15.1); White Blood Count 8.53 10^3/uL (3.29-11.43)
[2023-11-02 21:35] LABS: Lactic Sepsis W/Reflex 1.8 mmol/L (0.5-2.2)
[2023-11-02 21:36] LABS: Albumin Level 4.1 g/dL (3.5-5.2); Alkaline Phosphatase 97 U/L (35-105); Blood Urea Nitrogen 17 mg/dL (6-20); C Reactive Protein 98.6 mg/L (0.0-4.9); Calcium 8.8 mg/dL (8.5-10.5); Carbon Dioxide 35 mmol/L (22-29); Chloride 93 mmol/L (98-107); Creatinine Clr Calc Pharmacy 119.8381; Globulin 2.8 g/dL (1.3-4.6); Glomerular Filtration Rate 64.7 mL/min (90-130); Glucose 107 mg/dL (65-115); Osmolality Calculated 282 mOsm/kg (285-295); Sodium 135 mmol/L (136-145); Total Bilirubin 1.2 mg/dL (0.15-1.2); Total Protein 6.9 g/dL (6.6-8.7)
--- NOTE | 2023-11-02 21:41 | ECG_ITS ---
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 Measurements Intervals Allred Rate: 87 P: 78 AR: 138 QRS: 103 QRSD: 90 T: 65 QT: 367 QTc: 444 Interpretive Statements SINUS RHYTHM POSSIBLE LEFT ATRIAL ENLARGEMENT [-0.1mV P-WAVE IN V1/V2] RIGHT AXIS DEVIATION [QRS AXIS > 100] PATTERN CONSISTENT WITH PULMONARY DISEASE SEPTAL MYOCARDIAL INFARCTION , OF INDETERMINATE AGE [40+ ms Q WAVE IN V1/V2] Compared to ECG 03/13/2023 19:10:06 Myocardial infarct finding now present Electronically Signed On 11-03-2023 7:49:36 CDT by Demond James M.D. [id number]
[2023-11-02 21:48] LABS: Alanine Aminotransferase 1479 U/L (0-33)
[2023-11-02 21:49] LABS: Aspartate Amino Transferase 1228 U/L (0-32)
[2023-11-02 21:55] VITALS: BP 146/105; PULSE 90; RESP 18; O2SAT 90
[2023-11-02 22:02] LABS: Bacteria Urine Trace /hpf; Hyaline Casts Urine 0-4 /lpf; RBC Urine 0-2 /hpf (0-2); Squamous Epithelial Cell Urine 0-5 /hpf (0-5); WBC Urine 0-5 /hpf (0-5)
[2023-11-02 22:20] LABS: Bilirubin Urine Negative (Negative); Blood Urine Negative (Negative); Glucose Urine UA Negative (Normal); Ketones Urine Negative (Negative); Leukocyte Esterase Urine Negative (Negative); Nitrate Urine Negative (Negative); Protein Urine 1+ (Negative); Urine Appearance Cloudy (CLEAR); Urine Color Dark Yellow (Yellow); pH Urine 6.5 (5-7)
[2023-11-02 22:20] LABS: Covid PCR NEGATIVE (Negative); Influenza A NEGATIVE (Negative); Influenza B NEGATIVE (Negative); Respiratory Syncytial Virus Ce NEGATIVE (Negative)
--- NOTE | 2023-11-02 22:22 | CTR_ITS ---
PROCEDURE INFORMATION: Exam: CT Abdomen And Pelvis With Contrast Exam date and time: 11/02/2023 10:46 PM Age: 33 years old Clinical indication: Abdominal tenderness and nausea; Abdominal pain; Generalized; Prior surgery; Surgery date: 6+ months; Surgery type: Choley, tricuspid valve replacement TECHNIQUE: Imaging protocol: Computed tomography of the abdomen and pelvis with contrast. Radiation optimization: All CT scans at this facility use at least one of these dose optimization techniques: automated exposure control; mA and/or kV adjustment per patient size (includes targeted exams where dose is matched to clinical indication); or iterative reconstruction. Contrast material: OMNI 350; Contrast volume: 100 ml; Contrast route: INTRAVENOUS (IV); COMPARISON: CR (CHEST, ) 11/02/2023 9:11 PM RADIATION DOSE METRICS: Total DLP (mGy-cm): 1315.28 FINDINGS: Liver: Diffuse hepatic steatosis. The liver is enlarged, measuring 20.2 cm craniocaudal. Gallbladder and biliary ducts: Status post cholecystectomy. Pancreas: Normal. No ductal dilation. Spleen: Normal. No splenomegaly. Adrenal glands: Normal. No mass. Kidneys and ureters: Normal. No hydronephrosis. Stomach and bowel: Unremarkable. No obstruction. No mucosal thickening. Appendix: No evidence of appendicitis. Intraperitoneal space: Unremarkable. No free air. No significant fluid collection. Vasculature: Unremarkable. No abdominal aortic aneurysm. Lymph nodes: Unremarkable. No enlarged lymph nodes. Urinary bladder: Unremarkable as visualized. Reproductive: IUD is in place within the uterus. Bones/joints: Unremarkable. No acute fracture. Soft tissues: Fat containing ventral hernia along the upper abdominal midline. The hernia neck measures 2.[address]/CT abdomen pelvis w con* [id number] IMPRESSION: 1. No acute findings in the abdomen/pelvis. 2. Hepatomegaly with diffuse hepatic steatosis. 3. Status post cholecystectomy. 4. Fat containing ventral hernia along the upper abdominal midline.
[2023-11-02 22:24] LABS: Add Urine Culture? No
[2023-11-02] MEDS: ondansetron 2 mg/ML SDV 2 mL 4 MG IVP (22:29)
[2023-11-02 22:31] VITALS: BP 141/83; PULSE 83; RESP 16; O2SAT 96
[2023-11-02] MEDS: iohexol 350 mg/mL 500 mL Btl (per mL) IV (22:50)
[2023-11-02 22:52] LABS: Hepatitis A Antibody IgM Non-Reactive (Nonreactive); Hepatitis B Core IgM Non-Reactive (Nonreactive); Hepatitis B Surface Antigen Non-Reactive (Nonreactive); Hepatitis C Virus Antibody Reactive (Nonreactive)
[2023-11-02 23:30] VITALS: O2SAT 95
--- NOTE | 2023-11-02 23:45 | PC.NURSE ---
Pt sent home with 2tabs of 4mg Zofran per Dr Palomo's orders.
--- NOTE | 2023-11-02 23:54 | P.CONIM_ITS ---
Providers/Reason For Consult 2 Consulting Physician/Specialty*: er Reason for Consult*: transaminitis Primary Care Provider: Irving Franco MD History of Present Illness History of Present Illness Allyn Killian is a 33 year old female with a past medical history of morbid obesity, history of endocarditis, history of drug use, history of prediabetes, chronically on 2 L, who presents [facility] due to fatigue, malaise, not feeling well, nausea, joint aches and pains, generalized weakness. Reports symptoms started over the last 48 hours, no lightheadedness, dizziness, no chest pain, no cough, does report some congestion, no sore throat, no lightheadedness, dizziness, no chest pain, no palpitations, no abdominal pain, no diarrhea, no bloody or black stools, no hematemesis, no falls, no injuries, no recent travel, her youngest child has been sick for the last few days, but is better now, no headache, no blurry vision, no neck pain, no neck stiffness, denies any history of alcoholism, denies any overuse of Tylenol, she adamantly denies any drug use, denies any smoking, no fevers, no chills no dysuria, she has a history of hepatitis C, status posttreatment, Medications/Allergies Home Medications Medication Instructions Recorded Confirmed Last Taken Type buprenorphine 8 mg-naloxone 2 mg 1 film buccal DAILY 02/11/22 08/13/23 Unknown History sublingual film (Suboxone) albuterol sulfate 90 mcg/actuation 2 puff inhalation QID #6.7 grams 07/16/22 08/13/23 Unknown Rx aerosol inhaler (Ventolin HFA) albuterol sulfate 90 mcg/actuation 2 inh inhalation 6XD PRN shortness 01/17/23 08/13/23 Unknown Rx aerosol inhaler of breath or wheezing #6.7 grams cetirizine 10 mg tablet (Zyrtec) 10 mg PO DAILY #30 tabs 04/30/23 08/13/23 Unknown Rx metformin 500 mg tablet 500 mg PO BID 04/30/23 08/13/23 Unknown History torsemide 20 mg tablet 20 mg PO BID #60 tabs 04/30/23 08/13/23 Unknown Rx fluconazole 150 mg tablet 150 mg PO Q3D 2 doses #2 tabs 05/07/23 08/13/23 Unknown Rx cephalexin 500 mg tablet 500 mg PO TID 7 days #21 tabs 08/13/23 08/13/23 Unknown Rx ondansetron 8 mg disintegrating 8 mg PO Q6H #14 tabs 11/02/23 Unknown Rx tablet Allergies Allergy/AdvReac Type Severity Reaction Status Date / Time No Known Allergies Allergy Verified 11/02/23 20:53 PFSH Acute 2 PFSH: Medical History PTSD (post-traumatic stress disorder) Moderate major depression Pre-diabetes Methamphetamine use disorder, severe, in sustained remission Adult BMI 50.0-59.9 kg/sq m IV drug user CHF (congestive heart failure) Endocarditis Septic embolism Surgical History Hx of cholecystectomy History of open heart surgery Tricuspid valve replacement Social History Smoking and tobacco/nicotine status: current every day tobacco/nicotine user e- cigarettes E-Cigarette Details: e-cigarette, vaporizer device and with nicotine Alcohol intake: current Alcohol intake frequency: holidays/special occasions only Substance/Drug Use: former Date of last use: 6yrs Former substance use details: IVDU, pills Adopted: No service: No Current occupational exposures/hazards: No Current gender identity: Female Vitals/I&O/Wt Last Vital Signs Temp 97.6 F 11/02/23 20:49 Pulse 83 11/02/23 22:31 Resp 16 11/02/23 22:31 BP 141/83 11/02/23 22:31 Pulse Ox 95 11/02/23 23:30 O2 Del Method Nasal Cannula 11/02/23 23:30 O2 Flow Rate 2 11/02/23 22:31 Weight last 48 hrs Weight 154.221 kg Physical Exam 2 Const: COMMON NORMALS: no acute distress and patient oriented x3 HENMT: COMMON NORMALS: normocephalic HEAD & SCALP: normocephalic Eye: COMMON NORMALS: Equal, round and reactive pupils present PUPIL: Yes Equal, round and reactive pupils present Neck/C-Spine: COMMON NORMALS: no JVD Lymph: LYMPHATIC: no lymphadenopathy noted Resp: COMMON NORMALS: normal respiratory effort, No retractions, No use of accessory muscles and clear to auscultation bilaterally AUSCULTATION: clear to auscultation bilaterally Cardio: COMMON NORMALS: no JVD, regular rate, regular rhythm, S1 normal heart sound present and S2 normal heart sound present RATE: regular rate RHYTHM: regular rhythm HEART SOUNDS: S1 normal heart sound present and S2 normal heart sound present GI: COMMON NORMALS: Normal to inspection, nondistended, normoactive bowel sounds present and non-tender Extremity: COMMON NORMALS: no calf tenderness and no pedal edema Neuro: COMMON NORMALS: patient oriented x3, CN's II-XII intact bilaterally and moves all extremities Psych: COMMON NORMALS: mental status grossly normal Data 11/02/23 21:13 11/02/23 21:13 A&P Assessment and plan (1) Transaminitis: Plan Transaminitis -Likely viral in etiology -LFTs back in April were within normal limits -With viral prodrome currently -Seems like infectious mononucleosis -Ordered EBV, acetaminophen levels, ammonia levels, SIMA, ESR, ferritin, GGT, A1c, lipase, lipid panel, AMA, TSH, HIV panel, respiratory viral panel -Advised for now hydrate well -Avoid Tylenol, she can use ibuprofen as needed for fevers -She must see Dr. Kendall on at least to recheck her liver function to ensure that it is improving -If she starts developing jaundice, worsening nausea, vomiting, worsening symptomatology please come back to the emergency room -Her fatigue and malaise might be related to Ulises-Pickens virus -Advised her to hold off on taking metformin -Follow-up with primary care in 48 hours -Advised to avoid any contact sports -If any sudden onset abdominal pain please come back to emergency room -Patient is adamant about going home, she needs to take her children in the morning to school, discussed morbidity mortality associate with transaminitis, she voiced understanding, all questions answered, declines monitoring in the hospital Consult Attestations 2 Medical Necessity Statement: Patient is going to be discharged from the ER and High MDM includes number and complexity of problems actively addressed during encounter, amount and/or complexity of data reviewed/ordered and described risk of complication, morbidity or mortality of management as documented Diagnoses Transaminitis R74.01
[2023-11-02 23:56] VITALS: BP 137/95; PULSE 79; RESP 18; O2SAT 99
[2023-11-03 00:04] LABS: Erythrocyte Sedimentation Rate 5 mm/hr (0-15); Monoscreen Negative (Negative)
[2023-11-03 00:16] LABS: Estmated Average Glucose 137; Hemoglobin A1C 6.4 % (4.0-6.0)
[2023-11-03 00:19] LABS: Ammonia 22 umol/L (11-51)
[2023-11-03 00:29] LABS: Procalcitonin 0.26 ng/mL (0-0.5); Thyroid Stimulating Hormone 1.02 uIU/mL (0.27-4.20)
[2023-11-03 00:40] LABS: Chol HDL Ratio 7.74 mg/dL (0.0-4.40); Cholesterol 147 mg/dL (0-200); HDL Cholesterol 19 mg/dL (60-100); LDL Cholesterol Calculated 83 mg/dL (50-129); LDL HDL Ratio 4.37 RATIO (0.00-3.22); Lipase 47 U/L (13-60); Triglycerides 223 mg/dL (0-150)
[2023-11-03 00:41] LABS: Acetaminophen < 5.0 ug/mL (10-30)
[2023-11-03 00:43] LABS: HIV 1 & 2 Antibody Non-Reactive (Non-Reactiv); HIV 1 & 2 Antigen Non-Reactive (Non-Reactiv)
[2023-11-03 01:38] LABS: Ferritin 334 ng/mL (15-150); Gamma Glutamyl Transferase 143 U/L (5-36)
[2023-11-04 08:21] LABS: EBV IGM TEST <36.00 U/mL; EBV Nuclear AG >600.00 U/mL; EBV Viral Capsid AB IGM <36.00 U/mL
[2023-11-04 14:40] LABS: COMPLEMENT, TOTAL (CH50) 42 U/mL (31-60)
[2023-11-04 15:18] LABS: ANA SCREEN, IFA NEGATIVE (NEGATIVE)
[2023-11-05 15:41] LABS: HEP C RNA Viral Load Quant <1.18 NOT DETECTED Log IU/mL (NOT DETECTED); HEP C RNA Viral Load Quant <15 NOT DETECTED IU/mL (NOT DETECTED)
[2023-11-06 04:27] LABS: CENTROMERE B ANTIBODY <1.0 NEG AI (<1.0 NEG); JO-1 ANTIBODY <1.0 NEG AI (<1.0 NEG); RNP ANTIBODY <1.0 NEG AI (<1.0 NEG); SCL-70 ANTIBODY <1.0 NEG AI (<1.0 NEG); SJOGREN'S ANTIBODY (SS-A) <1.0 NEG AI (<1.0 NEG); SM ANTIBODY <1.0 NEG AI (<1.0 NEG); SS-B <1.0 NEG AI (<1.0 NEG)
== END 2023-11-02 23:58 | disposition home or self-care (01) ==
PROVIDERS: Family Medicine; Emergency Provider Emergency Medicine; PCP Family Medicine
DX: B17.9 Acute viral hepatitis, unspecified (principal); F17.290 Nicotine dependence, other tobacco product, uncomplicated; I50.9 Heart failure, unspecified
CPT/HCPCS: 0241U; 71045; 74177; 80053; 80061; 80074; 80307; 81001; 82140; 82728; 82977; 83036; 83516; 83605; 83690; 84145; 84443; 85025; 85651; 86140; 86160; 86162; 86235; 86255; 86308; 86376; 86664; 86665; 87522; 87806; 93005; 96374; 99285; J2405

== ENCOUNTER 2023-11-04 23:03 | Emergency (ER) | payer MEDICAID, SELFPAY ==
[2023-11-04 23:09] VITALS: BP 138/84; PULSE 85; RESP 18; TEMP 36.4; O2SAT 92; BMI 60.4
[2023-11-04 23:41] VITALS: BP 168/114; PULSE 89; RESP 18; O2SAT 89
[2023-11-04 23:52] LABS: Basophils % 0.6 %; Eosinophils # 0.1 10^3/uL (0.0-0.8); Eosinophils % 1.2 %; Hematocrit 42.3 % (36-47); Lymphocytes # 1.9 10^3/uL (0.8-4.8); Lymphocytes % 26.2 %; Mean Corpuscular HGB Conc 31.7 g/dL (30-55); Mean Corpuscular Hemoglobin 29.5 pg (27-33); Mean Corpuscular Volume 93.2 fl (85-98); Mean Platelet Volume 9.1 fL (7.4-10.4); Monocytes # 0.4 10^3/uL (0.2-0.9); Monocytes % 5.9 %; Neutrophils # 4.68 10^3/uL (1.8-7.7); Neutrophils % 64.7 %; Nucleated Red Blood Cells # 0.1 /100WBC; Nucleated Red Blood Cells % 1.2 %; Platelet Count 145 10^3/cmm (157-399); Red Blood Count 4.54 10^6/uL (3.85-5.65); Red Cell Distribution Width 14.6 % (12.1-15.1); White Blood Count 7.24 10^3/uL (3.29-11.43)
[2023-11-05 00:03] LABS: INR 1.32 (0.8-1.2)
[2023-11-05 00:04] LABS: Partial Thromboplastin Time 26.5 SECONDS (23.9-36.7)
[2023-11-05 00:07] LABS: Albumin Level 3.9 g/dL (3.5-5.2); Alkaline Phosphatase 91 U/L (35-105); Anion Gap 11.8 (5-19); Aspartate Amino Transferase 336 U/L (0-32); Blood Urea Nitrogen 16 mg/dL (6-20); Calcium 8.5 mg/dL (8.5-10.5); Carbon Dioxide 34 mmol/L (22-29); Chloride 92 mmol/L (98-107); Creatinine Clr Calc Pharmacy 120.0718; Globulin 3.3 g/dL (1.3-4.6); Glomerular Filtration Rate 64.7 mL/min (90-130); Glucose 129 mg/dL (65-115); Osmolality Calculated 281 mOsm/kg (285-295); Potassium 3.8 mmol/L (3.5-5.1); Sodium 134 mmol/L (136-145); Total Bilirubin 0.9 mg/dL (0.15-1.2); Total Protein 7.2 g/dL (6.6-8.7)
--- NOTE | 2023-11-05 00:14 | W.ED.ABDPA2 ---
HPI - Abdominal Pain General: Chief Complaint: Abdominal Pain Stated Complaint: abd pain Time Seen by Provider: 11/04/23 23:07 History of Present Illness: 33-year-old female with history of morbid obesity, congestive heart failure, chronic hypoxemic respiratory failure on 2 L nasal cannula at home at all times, and diabetes who presents emergency room with continued abdominal pain. Also given night and she had an acute hepatitis. I offered admission which she needed to go home. She is not able to get into her primary for follow-up labs. She has had some nausea, decreased appetite and constipation. Related Data Home Medications Medication Instructions Recorded Confirmed buprenorphine 8 mg-naloxone 2 mg 1 film buccal DAILY 02/11/22 08/13/23 sublingual film (Suboxone) metformin 500 mg tablet 500 mg PO BID 04/30/23 08/13/23 Previous Rx's Medication Instructions Recorded albuterol sulfate 90 mcg/actuation 2 puff inhalation QID #6.7 grams 07/16/22 aerosol inhaler (Ventolin HFA) albuterol sulfate 90 mcg/actuation 2 inh inhalation 6XD PRN shortness 01/17/23 aerosol inhaler of breath or wheezing #6.7 grams cetirizine 10 mg tablet (Zyrtec) 10 mg PO DAILY #30 tabs 04/30/23 torsemide 20 mg tablet 20 mg PO BID #60 tabs 04/30/23 fluconazole 150 mg tablet 150 mg PO Q3D 2 doses #2 tabs 05/07/23 cephalexin 500 mg tablet 500 mg PO TID 7 days #21 tabs 08/13/23 ondansetron 8 mg disintegrating 8 mg PO Q6H #14 tabs 11/02/23 tablet glycerin (adult) 1 supp NH DAILY PRN constipation 11/05/23 #12 ea polyethylene glycol 3350 17 17 g PO DAILY #510 grams 11/05/23 gram/dose oral powder (Miralax) Allergies Allergy/AdvReac Type Severity Reaction Status Date / Time No Known Allergies Allergy Verified 11/02/23 20:53 Review of Systems Narrative: Constitutional symptoms: Negative except as documented in HPI. Skin symptoms: Negative except as documented in HPI. Eye symptoms: Negative except as documented in HPI. ENMT symptoms: Negative except as documented in HPI. Respiratory symptoms: Negative except as documented in HPI. Cardiovascular symptoms: Negative except as documented in HPI. Gastrointestinal symptoms: Negative except as documented in HPI. Genitourinary symptoms: Negative except as documented in HPI. Musculoskeletal symptoms: Negative except as documented in HPI. Neurologic symptoms: Negative except as documented in HPI. Psychiatric symptoms: Negative except as documented in HPI. Endocrine symptoms: Negative except as documented in HPI. PFSH ED PFSH: Medical History PTSD (post-traumatic stress disorder) Moderate major depression Pre-diabetes Methamphetamine use disorder, severe, in sustained remission Adult BMI 50.0-59.9 kg/sq m IV drug user CHF (congestive heart failure) Endocarditis Septic embolism Surgical History Hx of cholecystectomy History of open heart surgery Tricuspid valve replacement Social History Smoking and tobacco/nicotine status: current every day tobacco/nicotine user e-cigarettes E-Cigarette Details: e-cigarette, vaporizer device and with nicotine Alcohol intake: current Alcohol intake frequency: holidays/special occasions only Substance/Drug Use: former Date of last use: 6yrs Former substance use details: IVDU, pills Adopted: No service: No Current occupational exposures/hazards: No Current gender identity: Female Physical Exam Narrative: EXAM NARRATIVE: General: Alert, no acute distress. Skin: Warm, dry. Head: Normocephalic, atraumatic. Neck: Supple, trachea midline. Eye: Extraocular movements are intact. Ears, nose, mouth and throat: mucosa moist. Cardiovascular: Regular, Normal peripheral perfusion. Respiratory: Lungs are clear to auscultation, respirations are non-labored, breath sounds are equal, Symmetrical chest wall expansion. Gastrointestinal: Soft, Nontender, Non distended Musculoskeletal: Normal ROM, no deformity. Neurological: Alert and oriented, No focal neurological deficit observed. Psychiatric: Cooperative, appropriate mood & affect. Course Vital Signs: Vital signs: Vital Signs Temperature 97.5 F L 11/04/23 23:09 Pulse Rate 89 11/04/23 23:41 Respiratory Rate 18 11/04/23 23:41 Blood Pressure 168/114 11/04/23 23:41 Pulse Oximetry 89 L 11/04/23 23:41 Oxygen Delivery Me thod Room Air 11/04/23 23:41 MDM - Abdominal Pain Medical Decision Making Lab Review: Laboratory results were reviewed and interpreted by myself the emergency room physician. No renal failure. Coags are mildly elevated. LFTs have come down quite significantly from 14-1500 to 800 and 350. I reviewed the patient's medical record. Reexamination: Patient remained stable. No increased work of breathing. No altered mental status. No focal motor deficits. Consultation: I spoke with hospitalist on-call who have examined the patient and consulted the last time she was here. He does agree that she is okay to go home and follow her primary and she needs to have GI follow-up fairly soon. Assessment and plan: Acute hepatitis - Discharged home - Discussed plan with patient. Answered any questions. - Evaluation and treatment of this problem were appropriate in the emergency setting. Lab Data 11/04/23 23:43 11/04/23 23:43 Labs/Radiology: Laboratory Results WBC 7.24 10^3/uL (3.29-11.43) 11/04/23 23:43 RBC 4.54 10^6/uL (3.85-5.65) 11/04/23 23:43 Hgb 13.40 g/dL (11.27-16.99) 11/04/23 23:43 Hct 42.3 % (36-47) 11/04/23 23:43 MCV 93.2 fl (85-98) 11/04/23 23:43 MCH 29.5 pg (27-33) 11/04/23 23:43 MCHC 31.7 g/dL (30-55) 11/04/23 23:43 RDW 14.6 % (12.1-15.1) 11/04/23 23:43 Plt Count 145 10^3/cmm (157-399) L 11/04/23 23:43 MPV 9.1 fL (7.4-10.4) 11/04/23 23:43 Neut % (Auto) 64.7 % 11/04/23 23:43 Lymph % (Auto) 26.2 % 11/04/23 23:43 [place] % (Auto) 5.9 % 11/04/23 23:43 Eos % (Auto) 1.2 % 11/04/23 23:43 Baso % (Auto) 0.6 % 11/04/23 23:43 Neut # (Auto) 4.68 10^3/uL (1.8-7.7) 11/04/23 23:43 Lymph # (Auto) 1.9 10^3/uL (0.8-4.8) 11/04/23 23:43 [place] # (Auto) 0.4 10^3/uL (0.2-0.9) 11/04/23 23:43 Eos # (Auto) 0.1 10^3/uL (0.0-0.8) 11/04/23 23:43 Baso # (Auto) 0.0 10^3/uL (0.0-0.1) 11/04/23 23:43 Nucleated RBC % (auto) 1.2 % 11/04/23 23:43 Nucleated RBCs # 0.1 /100WBC 11/04/23 23:43 PT 16.90 SECONDS (12.1-14.9) H 11/04/23 23:43 INR 1.32 (0.8-1.2) H 11/04/23 23:43 APTT 26.5 SECONDS (23.9-36.7) 11/04/23 23:43 Sodium 134 mmol/L (136-145) L 11/04/23 23:43 Potassium 3.8 mmol/L (3.5-5.1) 11/04/23 23:43 Chloride 92 mmol/L (98-107) L 11/04/23 23:43 Carbon Dioxide 34 mmol/L (22-29) H 11/04/23 23:43 Anion Gap 11.8 (5-19) 11/04/23 23:43 BUN 16 mg/dL (6-20) 11/04/23 23:43 Creatinine 1.0 mg/dL (0.5-0.9) H 11/04/23 23:43 GFR Calculation 64.7 mL/min (90-130) L 11/04/23 23:43 Glucose 129 mg/dL (65-115) H 11/04/23 23:43 Calculated Osmolality 281 mOsm/kg (285-295) L 11/04/23 23:43 Calcium 8.5 mg/dL (8.5-10.5) 11/04/23 23:43 Total Bilirubin 0.9 mg/dL (0.15-1.2) 11/04/23 23:43 AST 336 U/L (0-32) H 11/04/23 23:43 ALT 809 U/L (0-33) H 11/04/23 23:43 Alkaline Phosphatase 91 U/L (35-105) 11/04/23 23:43 Total Protein 7.2 g/dL (6.6-8.7) 11/04/23 23:43 Albumin 3.9 g/dL (3.5-5.2) 11/04/23 23:43 Globulin 3.3 g/dL (1.3-4.6) 11/04/23 23:43 No radiology studies performed this visit Discharge Plan Discharge Patient Disposition: Home Clinical Impression: Acute hepatitis Condition: Stable Prescriptions: New Miralax 17 gram/dose powder 17 g PO DAILY Qty: 510 0RF Rx Instructions: Take 1-2 scoops daily for the next 3 months to keep stools soft glycerin (adult) Suppository 1 supp NH DAILY PRN (Reason: constipation) Qty: 12 0RF No Action albuterol sulfate [Ventolin HFA] 90 mcg/actuation HFA aerosol inhaler 2 puff inhalation QID Qty: 6.7 0RF albuterol sulfate 90 mcg/actuation HFA aerosol inhaler 2 inh inhalation 6XD PRN (Reason: shortness of breath or wheezing) Qty: 6.7 0RF metformin 500 mg tablet 500 mg PO BID cetirizine [Zyrtec] 10 mg tablet 10 mg PO DAILY Qty: 30 0RF torsemide 20 mg tablet 20 mg PO BID Qty: 60 0RF Rx Instructions: at 7am and 1pm daily fluconazole 150 mg tablet 150 mg PO Q3D Qty: 2 0RF Rx Instructions: may repeat second dose 72 hrs after first dose if symptoms persist cephalexin 500 mg tablet 500 mg PO TID 7 Days Qty: 21 0RF buprenorphine-naloxone [Suboxone] 8-2 mg film 1 film buccal DAILY ondansetron 8 mg tablet,disintegrating 8 mg PO Q6H Qty: 14 0RF Rx Instructions: Take 1/2-1 tab every 6 hours as needed for nausea and vomiting Discharge Orders: Discharge ED (Routine); Ordered 11/05/23 Ordered By: Dana Palomo Referrals: Irving Franco MD [Primary Care Provider] - Discharge Diet: Advance as tolerated Discharge Activity: Increase activity as tolerated Activity Restrictions/Additional Instructions: He still need to have follow-up with your primary care provider in the next several days. Repeat liver enzymes within 3 to 5 days. They also need to refer you to a marine rigger. There is no gastroenterology at this hospital and this can be done as an outpatient at another hospital. Thank you for choosing [facility] for your healthcare needs today. Please realize this is an emergency room and that we are providing you with a medical screening exam and this may not be complete and all inclusive of all the testing and or work up that you may need to determine your ailment or severity of your illness. You have been screened and evaluated and felt safe for discharge. Health conditions do change or evolve sometimes and as such it is important that you follow up with your Primary Doctor to be re checked, 3-5 days is a general good time frame for follow up. You are always welcome to return to the ED for re assessment if your symptoms are worsening or you have new concerns Coding Level of Care Code ED Regulation Supervisor for Susana Stringer
[2023-11-05 00:19] LABS: Alanine Aminotransferase 809 U/L (0-33)
[2023-11-05] MEDS: magnesium citrate Btl 296 mL PO (01:21)
[2023-11-05 01:22] VITALS: BP 123/83; PULSE 75; O2SAT 95
== END 2023-11-05 01:23 | disposition home or self-care (01) ==
PROVIDERS: Emergency Provider Emergency Medicine; PCP Family Medicine
DX: B17.9 Acute viral hepatitis, unspecified (principal); Z79.84 Long term (current) use of oral hypoglycemic drugs; I50.9 Heart failure, unspecified; F17.290 Nicotine dependence, other tobacco product, uncomplicated
CPT/HCPCS: 80053; 85025; 85610; 85730; 99283

== ENCOUNTER → 2024-06-03 15:39 | Outpatient (BNVA) | payer MEDICAID, SELFPAY | PROVIDERS: PCP Family Medicine; Visit Provider Family Medicine | DX: R74.01 Elevation of levels of liver transaminase levels (principal); R73.03 Prediabetes | CPT/HCPCS: 80053; 80061; 83036; 84439; 84443; 85025 ==

== ENCOUNTER → 2024-06-28 12:54 | Outpatient (BNVA) | payer OTHER, SELFPAY | PROVIDERS: PCP Family Medicine; Visit Provider Family Medicine | DX: R53.83 Other fatigue (principal) | CPT/HCPCS: 85651; 86038; 86140; 86200; 86235; 86431 ==

== ENCOUNTER 2025-01-14 15:24 | Emergency (ER) | payer OTHER, SELFPAY ==
[2025-01-14 15:47] VITALS: BP 116/81; PULSE 64; RESP 14; TEMP 36.4; O2SAT 96; BMI 37.2
--- NOTE | 2025-01-14 15:53 | XRR_ITS ---
PROCEDURE INFORMATION: Exam: XR Left Foot Exam date and time: 01/14/2025 4:07 PM Age: 34 years old Clinical indication: Injury or trauma; Other: Stubbed left fifth toe; Blunt trauma; Toes; Left lesser toe(s); Additional info: Fifth digit injury TECHNIQUE: Imaging protocol: Radiologic exam of the left foot. Views: 3 or more views. COMPARISON: No relevant prior studies available. FINDINGS: Bones/joints: There is transverse nondisplaced fracture of the proximal shaft of the left 5th proximal phalanx. Soft tissues: Mild swelling XR/XR foot LT min 3V* [id number] IMPRESSION: Fracture of the left 5th proximal phalanx.
--- NOTE | 2025-01-14 16:06 | ED_ITS ---
HPI - Extremity Problem General: Chief complaint: Extremity Injury, Lower Stated complaint: L foot Pinky toe Can't put wait on it Time Seen by Provider: 01/14/25 16:06 History of Present Illness: 34-year-old female with history of obesi ty and prediabetes and a history of IV drug use who presents to the emergency room with left fifth toe pain after she hit it against a chair yesterday. She has a lot of pain with moving the toe or trying to bear weight. There are some mild redness around this. No bruising. Related Data Home Medications ?Medication ?Instructions ?Recorded ?Confirmed semaglutide (weight loss) 1 mg/0.5 mg SUBCUT 12/06/24 12/06/24 mL subcutaneous pen injector (Wegovy) Previous Rx's ?Medication ?Instructions ?Recorded fluoxetine 20 mg tablet 20 mg PO DAILY #90 tabs 07/24 08/17 amoxicillin 500 mg tablet 500 mg PO BID 10 days #20 ta bs 12/06/24 fluconazole 150 mg tablet 150 mg PO Q3D 2 doses #2 tab s 12/06/24 prednisone 20 mg tablet 20 mg PO DAILY 5 days #5 tab s 12/06/24 hydrocodone 5 mg-acetaminophen 325 1 tab PO Q8H PRN pa in #14 tabs 01/14/25 mg tablet polyethylene glycol 3350 17 17 g PO DAILY #510 grams 1 03/16/24 gram/dose oral powder (Miralax) Allergies Allergy/AdvReac Type Severity Reaction Status Date / Time No Known Allergies Allergy Verified 01/14/25 15:50 Review of Systems Narrative: Constitutional symptoms: Negative except as documented in HPI. Skin symptoms: Negative except as documented in HPI. Eye symptoms: Negative except as documented in HPI. ENMT symptoms: Negative except as documented in HPI. Respiratory symptoms: Negative except as documented in HPI. Cardiovascular symptoms: Negative except as documented in HPI. Gastrointestinal symptoms: Negative except as documented in HPI. Genitourinary symptoms: Negative except as documented in HPI. Musculoskeletal symptoms: Negative except as documented in HPI. Neurologic symptoms: Negative except as documented in HPI. Psychiatric symptoms: Negative except as documented in HPI. Endocrine symptoms: Negative except as documented in HPI. PFS ED PFSH: Medical History (Updated 01/14/25 @ 17:26 by Dana Palomo MD) Vaping nicotine dependence, non-tobacco product BMI 40.0-44.9, adult Body mass index [BMI] 45.0-49.9, adult PTSD (post-traumatic stress disorder) Moderate major depression Pre-diabetes Methamphetamine use disorder, severe, in sustained remission Adult BMI 50.0-59.9 kg/sq m IV drug user CHF (congestive heart failure) Endocarditis Septic embolism Surgical History Hx of cholecystectomy History of open heart surgery Tricuspid valve replacement Social History Smoking and tobacco/nicotine status: current every day tobacco/nicotine user e- cigarettes E-Cigarette Details: e-cigarette, vaporizer device and with nicotine Alcohol intake: current Alcohol intake frequency: holidays/special occasions only Substance/Drug Use: former Date of last use: 6yrs Former substance use details: IVDU, pills Adopted: No service: No Current occupational exposures/hazards: No Current gender identity: Female Physical Exam Narrative: EXAM NARRATIVE: General: Alert, no acute distress. Skin: warm and dry Head: Normocephalic Neck: Trachea midline Eye: Extraocular movements are intact. Ears, nose, mouth and throat: Oral mucosa moist Respiratory: Respirations are non-labored Musculoskeletal: Pain and redness of the left fifth digit. No obvious deformity Gastrointestinal: Abdomen does not appear distended Neurological: Alert and oriented, No focal neurological deficit observed. Psychiatric: Cooperative, appropriate mood & affect. Course Vital Signs: Vital signs: Vital Signs Temperature 97.6 F 01/14/25 15:47 Pulse Rate 64 01/14/25 15:47 Respiratory Rate 14 01/14/25 15:47 Blood Pressure 116/81 01/14/25 15:47 Pulse Oximetry 96 01/14/25 15:47 Oxygen Delivery Me thod Room Air 01/14/25 15:47 MDM - Extremity (Nontraumatic) Medical Decision Making Medical decision making Patient's reason for coming to the emergency room: Left toe pain Social determinants: Patient is employed. I reviewed the patient's medical record. Listed a history of substance abuse in remission, obesity and prediabetes I reviewed the patient's current home meds Patient takes fluoxetine and semaglutide. Alternate historians: None Differential diagnosis including but not limited to and based on the above HPI, review of systems and physical exam: In this patient with a musculoskeletal extremity traumatic injury and x-ray is being ordered to rule out fractures and dislocations. Orders placed to evaluate differential diagnosis based on the above differential, HPI and physical exam Lab Review: Laboratory results were reviewed and interpreted by myself the emergency room physician. No lab work indicated today. X-ray of the foot: Fracture of the left fifth proximal phalanx. This was reviewed and interpreted by myself the emergency room physician. I also reviewed the radiology report. Assessment of risk: Level of risk: Low risk patient. Hospitalization considerations: No consideration of hospitalization Reexamination: Patient remained stable. No increased work of breathing. No altered mental status. No focal motor deficits. Consultation: I spoke with Dr. Dorantes who is on-call for podiatry who recommends clay tape and follow-up in clinic. Assessment and plan: Toe fracture ?Gio in the emergency room - Discharged home - Discussed plan with patient. Answered any questions. - Evaluation and treatment of this problem were appropriate in the emergency setting. Lab Data Radiology Impressions Foot X-Ray 01/14/25 15:53 IMPRESSION: Fracture of the left 5th proximal phalanx. All radiology interpretation(s) finalized by discharge Discharge Plan Discharge Patient Disposition: Home Clinical Impression: Closed fracture of fifth toe of left foot Condition: Stable Prescriptions: New hydrocodone-acetaminophen 5-325 mg tablet 1 tab PO Q8H PRN (Reason: pain) Qty: 14 0RF Rx Instructions: Take 1/2 to 1 tab every 8 hours as needed for pain polyethylene glycol 3350 [Miralax] 17 gram/dose powder 17 g PO DAILY Qty: 510 0RF Rx Instructions: Take 1 scoop daily while taking pain medications. No Action fluoxetine 20 mg tablet 20 mg PO DAILY Qty: 90 1RF Wegovy 1 mg/0.5 mL pen injector SUBCUT prednisone 20 mg tablet 20 mg PO DAILY 5 Days Qty: 5 0RF amoxicillin 500 mg tablet 500 mg PO BID 10 Days Qty: 20 0RF fluconazole 150 mg tablet 150 mg PO Q3D 0 Days Qty: 2 1RF Rx Instructions: may repeat second dose 72 hrs after first dose if symptoms persist Discharge Orders: Discharge ED (Routine); Ordered 01/14/25 Ordered By: Dana Palomo Referrals: Herbert Dorantes DO [Physician, Orthopedics] - 4-7 days Referral Note: Please call for follow-up appointment Irving Franco MD [Primary Care Provider, Family Practice] Discharge Diet: Usual diet Discharge Activity: Increase activity as tolerated Patient Instructions: Opioid Safety, Pain Management, Patient Portal & Holli Instructions Activity Restrictions/Additional Instructions: Thank you for choosing [facility] for your healthcare needs today. You have been screened and evaluated and felt safe for discharge. Health conditions do change or evolve sometimes and as such it is important that you follow up with your Primary Doctor to be re checked, 3-5 days is a general good time frame for follow up. You are always welcome to return to the ED for re assessment if your symptoms are worsening or you have new concerns Print Language: [place] Coding Level of Care Code ED Build Automation Engineer for Susana Stringer
[2025-01-14] MEDS: HYDROcodone-acetaminophen 10-325 mg Tablet 1 TAB PO (17:45)
== END 2025-01-14 17:50 | disposition home or self-care (01) ==
PROVIDERS: Emergency Provider Emergency Medicine; PCP Family Medicine
DX: S92.812A Other fracture of left foot, initial encounter for closed fracture (principal); W22.8XXA Striking against or struck by other objects, initial encounter
CPT/HCPCS: 73630; 99283; J9999